=== PATIENT | female | born 1995 | race Caucasian/White ===

== ENCOUNTER 2021-10-22 16:34 | Emergency (ER) | payer MEDICAID ==
[~2021-10-22] VITALS: Ht 160 cm; Wt 57.0 kg
--- NOTE | 2021-10-22 17:16 | ED Chest Pain ---
General Chief Complaint: Chest Wall Stated Complaint: CHEST PAIN, RINGING IN EARS,DIZZY Nursing Triage Note: pt. reports anterior chest discomfort, ongoing for over 4 months. accomp w/ a mild cough, productive of mucus. pt. in no distress. here for eval. Source: patient Exam Limitations: no limitations (SHARAN RAMIREZ) History of Present Illness Date Seen by Provider: Oct 22, 2021 Time Seen by Provider: 17:15 Initial Comments This is a 25-year-old female that presents to the emergency room for multiple complaints. She states that she has had intermittent chest pain over the last 4 months and that it is mostly substernal. Nothing specifically seems to make it come or go but she states that she currently does not have any pain. However, she does state that over the last 2 to 3 days she has had a runny nose, cough and congestion and the reason she came to the emergency room today was for feeling short of breath. She has not traveled anywhere recently. She does have history of insulin-dependent diabetes and states that she takes her Levemir and NovoLog as prescribed. Timing/Duration: 1-2 days Severity/Quality: moderate Location: substernal Radiation: no radiation Activities at Onset: none (SHARAN RAMIREZ) Allergies and Home Medications Allergies Coded Allergies: No Known Drug Allergies (Unverified , 10/22/21) Patient Home Medication List Home Medication List Reviewed: Yes (SHARAN RAMIREZ) Review of Systems Review of Systems Constitutional: malaise EENTM: Nose Congestion Respiratory: Cough Cardiovascular: Chest Pain Gastrointestinal: No Symptoms Reported Genitourinary: No Symptoms Reported Musculoskeletal: no symptoms reported Skin: no symptoms reported (SHARAN RAMIREZ) Past Xxpijjb-Jthgwp-Jhyrxd Hx Past Medical History Last Menstrual Period: September 18, 2021 (SHARAN RAMIREZ) Physical Exam Vital Signs Vital Signs - First Documented 10/22/21 16:50 Temp 36.9 Pulse 100 Resp 20 B/P (MAP) 105/80 (88) Pulse Ox 98 O2 Delivery Room Air (ELIZABETH MARIE MD) Vital Signs Capillary Refill : Less Than 3 Seconds (SHARAN RAMIREZ) Height, Weight, BMI Height: '" Weight: lbs. oz. kg; 22.00 BMI Method: General Appearance: No Apparent Distress, WD/WN HEENT: PERRL/EOMI, TMs Normal, Pharynx Normal Neck: Full Range of Motion, Normal Inspection Respiratory: Chest Non Tender, Lungs Clear, Normal Breath Sounds Cardiovascular: No Edema, No Murmur, Tachycardia Gastrointestinal: Non Tender, Soft Extremity: Normal Capillary Refill, Normal Inspection Skin: Normal Color Lymphatic: No Adenopathy (SHARAN RAMIREZ) Progress/Results/Core Measures Results/Orders Lab Results Laboratory Tests Test 10/22/21 17:17 Range/Units White Blood Count 8.4 4.3-11.0 10^3/uL Red Blood Count 4.04 3.80-5.11 10^6/uL Hemoglobin 12.3 11.5-16.0 g/dL Hematocrit 36 35-52 % Mean Corpuscular Volume 89 80-99 fL Mean Corpuscular Hemoglobin 30 25-34 pg Mean Corpuscular Hemoglobin Concent 34 32-36 g/dL Red Cell Distribution Width 11.9 10.0-14.5 % Platelet Count 220 130-400 10^3/uL Mean Platelet Volume 9.5 9.0-12.2 fL Immature Granulocyte % (Auto) 0 % Neutrophils (%) (Auto) 72 42-75 % Lymphocytes (%) (Auto) 18 12-44 % Monocytes (%) (Auto) 8 0-12 % Eosinophils (%) (Auto) 2 0-10 % Basophils (%) (Auto) 0 0-10 % Neutrophils # (Auto) 6.0 1.8-7.8 10^3/uL Lymphocytes # (Auto) 1.5 1.0-4.0 10^3/uL Monocytes # (Auto) 0.7 0.0-1.0 10^3/uL Eosinophils # (Auto) 0.2 0.0-0.3 10^3/uL Basophils # (Auto) 0.0 0.0-0.1 10^3/uL Immature Granulocyte # (Auto) 0.0 0.0-0.1 10^3/uL D-Dimer 0.22 0.00-0.49 UG/ML Sodium Level 139 135-145 MMOL/L Potassium Level 3.6 3.6-5.0 MMOL/L Chloride Level 106 98-107 MMOL/L Carbon Dioxide Level 25 21-32 MMOL/L Anion Gap 8 5-14 MMOL/L Blood Urea Nitrogen 11 7-18 MG/DL Creatinine 0.69 0.60-1.30 MG/DL Estimat Glomerular Filtration Rate 125 BUN/Creatinine Ratio 16 Glucose Level 214 H 70-105 MG/DL Calcium Level 9.0 8.5-10.1 MG/DL Corrected Calcium 9.1 8.5-10.1 MG/DL Total Bilirubin 0.4 0.1-1.0 MG/DL Aspartate Amino Transf (AST/SGOT) 16 5-34 U/L Alanine Aminotransferase (ALT/SGPT) 16 0-55 U/L Alkaline Phosphatase 74 40-136 U/L Total Protein 6.5 6.4-8.2 GM/DL Albumin 3.9 3.2-4.5 GM/DL Serum Test, Qualitative NEGATIVE NEGATIVE Influenza Type A (RT-PCR) Not Detected Not Detecte Influenza Type B (RT-PCR) Not Detected Not Detecte SARS-CoV-2 RNA (RT-PCR) Not Detected Not Detecte (ELIZABETH MARIE MD) My Orders Orders - ELIZABETH MARIE MD Ekg Tracing (10/22/21 16:39) Monitor-Rhythm Ecg Trace Only (10/22/21 16:39) (ELIZABETH MARIE MD) Vital Signs/I&O 10/22/21 10/22/21 16:50 18:43 Temp 36.9 36.7 Pulse 100 86 Resp 20 16 B/P (MAP) 105/80 (88) 118/73 Pulse Ox 98 99 O2 Delivery Room Air Room Air 10/23/21 00:00 Intake Total 1000 ml Balance 1000 ml (ELIZABETH MARIE MD) Blood Pressure Mean: 88 Departure Communication (PCP) Patient is afebrile, nontoxic and in no distress. Lab work is reassuring. She is not actively having chest pain and her symptoms do not seem to be consistent with cardiac origin. Her D-dimer was negative and chest x-ray does not show any acute cardiopulmonary abnormalities. At this time I recommended that she follow-up closely with her primary care doctor for her upper respiratory infection as well as her intermittent chest pain. Patient is in agreement to the care plan. I do not feel that admission or further imaging/labs are indicated at this time. (ASHLEY,SHARAN H PA) Impression Primary Impression: Cough Additional Impression: Atypical chest pain Disposition: HOME, SELF-CARE Condition: Stable Departure-Patient Inst. Referrals: FRANCISCO ESPINAL MD (PCP) Primary Care Physician Patient Instructions: Chest Pain, Adult ED Add. Discharge Instructions: Please follow-up closely with your primary care doctor. Return to the emergency room with any severe changes or worsening of symptoms All discharge instructions reviewed with patient and/or family. Voiced understanding. ATTENDING PHYSICIAN NOTE: I was physically present as attending physician in the emergency department during the care of this patient, but I was not directly involved in the decision making or delivery of care for this patient. (ELIZABETH MARIE MD) SHARAN RAMIREZ Oct 22, 2021 17:16 ELIZABETH MARIE MD Oct 23, 2021 21:39
[2021-10-22] MEDS ORDERED: NS IV 1000 ML 1,000 ML IV STA (17:19)
[2021-10-22 17:28] LABS: BASOPHILS % (AUTO) 0 % (0-10); EOSINOPHILS # (AUTO) 0.2 10^3/uL (0.0-0.3); EOSINOPHILS % (AUTO) 2 % (0-10); HEMATOCRIT 36 % (35-52); HEMOGLOBIN 12.3 g/dL (11.5-16.0); LYMPHOCYTES # (AUTO) 1.5 10^3/uL (1.0-4.0); LYMPHOCYTES % (AUTO) 18 % (12-44); MEAN CORPUSCULAR HEMOGLOBIN 30 pg (25-34); MEAN CORPUSCULAR HGB CONC 34 g/dL (32-36); MEAN CORPUSCULAR VOLUME 89 fL (80-99); MEAN PLATELET VOLUME 9.5 fL (9.0-12.2); MONOCYTES # (AUTO) 0.7 10^3/uL (0.0-1.0); MONOCYTES % (AUTO) 8 % (0-12); NEUTROPHILS % (AUTO) 72 % (42-75); PLATELET COUNT 220 10^3/uL (130-400); WHITE BLOOD COUNT 8.4 10^3/uL (4.3-11.0)
[2021-10-22 17:45] LABS: ALBUMIN 3.9 GM/DL (3.2-4.5); POTASSIUM 3.6 MMOL/L (3.6-5.0)
[2021-10-22 17:48] LABS: TOTAL PROTEIN 6.5 GM/DL (6.4-8.2)
[2021-10-22 17:49] LABS: BILIRUBIN,TOTAL 0.4 MG/DL (0.1-1.0)
[2021-10-22 17:51] LABS: CREATININE SERUM 0.69 MG/DL (0.60-1.30)
--- NOTE | 2021-10-22 18:34 | Diagnostic Imaging Report ---
EXAM: Chest (PA and lateral). INDICATION: Cough. COMPARISON: None. FINDINGS: Normal heart size and pulmonary vascularity. No dense consolidation, pleural effusion or pneumothorax. No acute osseous finding. IMPRESSION: No acute cardiopulmonary finding. Dictated by: Dictated on workstation # [id number]
[2021-10-22 18:43] VITALS: BP 118/73
== END 2021-10-22 18:47 | disposition home or self-care (01) ==
LOC: EDUNIT# 16:34 → ER 16:37
DX: R07.89 Other chest pain (principal); R05.1 Acute cough; E11.9 Type 2 diabetes mellitus without complications; Z79.4 Long term (current) use of insulin; Z20.822 Contact with and (suspected) exposure to COVID-19
CPT/HCPCS: 36415; 71046; 80053; 84703; 85025; 85379; 87636; 93005

== ENCOUNTER 2021-11-13 11:31 | Emergency (ER) | payer MEDICAID ==
[~2021-11-13] VITALS: Ht 160 cm; Wt 56.7 kg
[2021-11-13] MEDS ORDERED: LACTATED RINGERS 1,000 ML IV ONE (11:45)
[2021-11-13 11:54] LABS: BILIRUBIN,URINE NEGATIVE (NEGATIVE); CLARITY,URINE CLEAR; COLOR,URINE YELLOW; GLUCOSE, URINE (UA) 3+ (NEGATIVE); KETONES,URINE 2+ (NEGATIVE); LEUKOCYTE ESTERASE ,URINE 1+ (NEGATIVE); NITRITE,URINE POSITIVE (NEGATIVE); PROTEIN,URINE TRACE (NEGATIVE)
[2021-11-13 12:03] LABS: BASOPHILS % (AUTO) 1 % (0-10); EOSINOPHILS # (AUTO) 0.2 10^3/uL (0.0-0.3); EOSINOPHILS % (AUTO) 3 % (0-10); HEMATOCRIT 39 % (35-52); LYMPHOCYTES # (AUTO) 1.1 10^3/uL (1.0-4.0); LYMPHOCYTES % (AUTO) 18 % (12-44); MEAN CORPUSCULAR HEMOGLOBIN 30 pg (25-34); MEAN CORPUSCULAR HGB CONC 33 g/dL (32-36); MEAN CORPUSCULAR VOLUME 91 fL (80-99); MEAN PLATELET VOLUME 9.5 fL (9.0-12.2); MONOCYTES # (AUTO) 0.3 10^3/uL (0.0-1.0); MONOCYTES % (AUTO) 5 % (0-12); NEUTROPHILS # (AUTO) 4.6 10^3/uL (1.8-7.8); NEUTROPHILS % (AUTO) 74 % (42-75); PLATELET COUNT 246 10^3/uL (130-400); WHITE BLOOD COUNT 6.3 10^3/uL (4.3-11.0)
[2021-11-13 12:14] LABS: ALBUMIN 4.2 GM/DL (3.2-4.5); POTASSIUM 3.9 MMOL/L (3.6-5.0)
[2021-11-13 12:17] LABS: TOTAL PROTEIN 6.9 GM/DL (6.4-8.2)
[2021-11-13 12:17] LABS: BACTERIA,URINE LARGE /HPF; WBC,URINE >100 /HPF
[2021-11-13 12:19] LABS: BILIRUBIN,TOTAL 0.5 MG/DL (0.1-1.0)
[2021-11-13 12:21] LABS: CREATININE SERUM 0.79 MG/DL (0.60-1.30)
[2021-11-13] MEDS ORDERED: PHENAZOPYRIDINE 100 MG (PYRIDIUM) TABLET PO STA (12:49)
--- NOTE | 2021-11-13 12:56 | ED GU-Female ---
General Chief Complaint: - Reproductive Stated Complaint: N/V,ABD PAIN,DX 11/13 W UTI Nursing Triage Note: PT AMBULATE TO ROOM 05 WITH C/O N/V, BURNING WITH URINATION, AND ABD PAIN. PT REPORTS BEIGN DX WITH UTI YESTERDAY AND PRESCRIBED ABX. PT STATES SHE WAS WAITING ON TEXT FROM THE [facility] LETTING HER KNOW THAT HER ABX WERE READY. PT STATES THE DISCOMFORT GOT WORSE SO SHE CAME TO ED. (RUCHI REDDY) History of Present Illness Date Seen by Provider: Nov 13, 2021 Time Seen by Provider: 11:45 Initial Comments 25 year old Type 1 DM, reports UTI and alopecia diagnosed yesterday at [facility]. Told her Rx would be sent to [facility], when she went to pharmacy rx was not ready and to await for a text to come pick it up. This morning, her phone battery was , so she wasn't sure if a text was sent saying the Rx was ready. She reports no longer having her continuous glucose monitor. She is taking insulin, as prescribed. She is switching Endocrinologists at this time. She has not taken any Tylenol or Ibuprofen for her symptoms. She denies N/V/D and no recent UTIs. Called [facility], no Rxs were sent to them at the [facility] or [place]. Spoke to nurse at [facility], chart indicates that she was going to treat alopecia with an anti-fungal and UTI was diagnosed but no Rx was on the chart. Timing/Duration: yesterday Severity/Quality: moderate Location: suprapubic Radiation: none Prior Genitourinary Problems: none Associated Symptoms: abdominal pain (suprapubic); No loss of bladder control, No lower back pain (RUCHI REDDY) Allergies and Home Medications Allergies Coded Allergies: amoxicillin (Verified Allergy, Unknown, 11/13/21) sulfamethoxazole (Verified Allergy, Unknown, 11/13/21) trimethoprim (Verified Allergy, Unknown, 11/13/21) Patient Home Medication List Home Medication List Reviewed: Yes (RUCHI REDDY) Nitrofurantoin Monohyd/M-Cryst (Macrobid 100 mg Capsule) 100 Mg Capsule, 100 MG PO BID Prescribed by: RUCHI REDDY on 11/13/21 1319 Phenazopyridine HCl (Pyridium) 100 Mg Tablet, 100 MG PO TID PRN for SPASMS Prescribed by: RUCHI REDDY on 11/13/21 1320 Review of Systems Review of Systems Constitutional: no symptoms reported, see HPI Genitourinary: see HPI, burning, frequency; denies hematuria : Yes (RUCHI REDDY) All Other Systemes Reviewed Negative Unless Noted: Yes (RUCHI REDDY) Past Oqbnoud-Ugfran-Jjcjmj Hx Patient Social History Tobacco Use?: No Smoking Status: Never a Smoker Smokeless Tobacco Frequency: Never a User Use of E-Cig and/or Vaping dev: No Use of E-Cig and/or Vaping Edwin: Never a User Substance use?: No Alcohol Use?: Yes Alcohol Frequency: Once in a while Pt feels they are or have been: No (RUCHI REDDY) Family Medical History Reviewed Nursing Family Hx (RUCHI REDDY) Physical Exam Vital Signs Vital Signs - First Documented 11/13/21 11/13/21 11:39 13:59 Temp 35.5 Pulse 93 Resp 18 B/P (MAP) 92/75 (81) Pulse Ox 100 O2 Delivery Room Air (ELIZABETH MARIE MD) Vital Signs Capillary Refill : Less Than 3 Seconds (RUCHI REDDY) Height, Weight, BMI Height: '" Weight: lbs. oz. kg; 22.00 BMI Method: General Appearance: WD/WN, no apparent distress HEENT: PERRL/EOMI, normal ENT inspection Neck: non-tender, full range of motion, supple, normal inspection Cardiovascular: normal peripheral pulses, regular rate, rhythm Respiratory: chest non-tender, lungs clear, normal breath sounds Gastrointestinal: normal bowel sounds, soft, tenderness (mild suprapubic) Extremities: normal range of motion, non-tender, normal inspection, no pedal edema Neurologic/Psychiatric: no motor/sensory deficits, alert, normal mood/affect, oriented x 3 (RUCHI REDDY) Progress/Results/Core Measures Suspected Sepsis SIRS Temperature: Pulse: 93 Respiratory Rate: 18 Laboratory Tests 11/13/21 11:55: White Blood Count 6.3 Blood Pressure 92 /75 Mean: 81 Laboratory Tests 11/13/21 11:55: Creatinine 0.79, Platelet Count 246, Total Bilirubin 0.5 (RUCHI REDDY) Results/Orders Lab Results Laboratory Tests Test 11/13/21 11:41 11/13/21 11:55 11/13/21 12:06 Range/Units Urine Color YELLOW Urine Clarity CLEAR Urine pH 6.0 5-9 Urine Specific [place] 1.020 1.016-1.022 Urine Protein TRACE H NEGATIVE Urine Glucose (UA) 3+ H NEGATIVE Urine Ketones 2+ H NEGATIVE Urine Nitrite POSITIVE H NEGATIVE Urine Bilirubin NEGATIVE NEGATIVE Urine Urobilinogen 1.0 < = 1.0 MG/DL Urine Leukocyte Esterase 1+ H NEGATIVE Urine RBC (Auto) TRACE-I H NEGATIVE Urine RBC 2-5 H /HPF Urine WBC >100 H /HPF Urine Squamous Epithelial Cells 5-10 /HPF Urine Crystals NONE /LPF Urine Bacteria LARGE H /HPF Urine Casts NONE /LPF Urine Mucus NEGATIVE /LPF Urine Culture Indicated YES White Blood Count 6.3 4.3-11.0 10^3/uL Red Blood Count 4.31 3.80-5.11 10^6/uL Hemoglobin 13.0 11.5-16.0 g/dL Hematocrit 39 35-52 % Mean Corpuscular Volume 91 80-99 fL Mean Corpuscular Hemoglobin 30 25-34 pg Mean Corpuscular Hemoglobin Concent 33 32-36 g/dL Red Cell Distribution Width 12.0 10.0-14.5 % Platelet Count 246 130-400 10^3/uL Mean Platelet Volume 9.5 9.0-12.2 fL Immature Granulocyte % (Auto) 0 % Neutrophils (%) (Auto) 74 42-75 % Lymphocytes (%) (Auto) 18 12-44 % Monocytes (%) (Auto) 5 0-12 % Eosinophils (%) (Auto) 3 0-10 % Basophils (%) (Auto) 1 0-10 % Neutrophils # (Auto) 4.6 1.8-7.8 10^3/uL Lymphocytes # (Auto) 1.1 1.0-4.0 10^3/uL Monocytes # (Auto) 0.3 0.0-1.0 10^3/uL Eosinophils # (Auto) 0.2 0.0-0.3 10^3/uL Basophils # (Auto) 0.0 0.0-0.1 10^3/uL Immature Granulocyte # (Auto) 0.0 0.0-0.1 10^3/uL Sodium Level 140 135-145 MMOL/L Potassium Level 3.9 3.6-5.0 MMOL/L Chloride Level 104 98-107 MMOL/L Carbon Dioxide Level 23 21-32 MMOL/L Anion Gap 13 5-14 MMOL/L Blood Urea Nitrogen 18 7-18 MG/DL Creatinine 0.79 0.60-1.30 MG/DL Estimat Glomerular Filtration Rate 108 BUN/Creatinine Ratio 23 Glucose Level 262 H 70-105 MG/DL Calcium Level 9.0 8.5-10.1 MG/DL Corrected Calcium 8.8 8.5-10.1 MG/DL Total Bilirubin 0.5 0.1-1.0 MG/DL Aspartate Amino Transf (AST/SGOT) 14 5-34 U/L Alanine Aminotransferase (ALT/SGPT) 13 0-55 U/L Alkaline Phosphatase 77 40-136 U/L C-Reactive Protein High Sensitivity 0.46 0.00-0.50 MG/DL Total Protein 6.9 6.4-8.2 GM/DL Albumin 4.2 3.2-4.5 GM/DL Serum Test, Qualitative NEGATIVE NEGATIVE Glucometer 241 H 70-110 MG/DL (ELIZABETH MARIE MD) My Orders Orders - ELIZABETH MARIE MD Cbc With Automated Diff (11/13/21 11:39) Comprehensive Metabolic Panel (11/13/21 11:39) Hs C Reactive Protein (11/13/21 11:39) Hcg,Qualitative Serum (11/13/21 11:39) Ed Iv/Invasive Line Start (11/13/21 11:39) Lactated Ringers (Lr 1000 Ml Iv Solution (11/13/21 11:45) (ELIZABETH MARIE MD) Medications Given in ED Current Medications Medications Dose Ordered Sig/Linden Route Start Time Stop Time Status Last Admin Dose Admin Ceftriaxone Sodium/Dextrose 50 ml @ 100 mls/hr ONCE ONCE IV 11/13/21 13:00 11/13/21 13:29 DC 11/13/21 12:54 100 MLS/HR Lactated Ringer's 1,000 ml @ 0 mls/hr Q0M ONCE IV 11/13/21 11:45 11/13/21 11:46 DC 11/13/21 11:59 999 MLS/HR (ELIZABETH MARIE MD) Vital Signs/I&O 11/13/21 11/13/21 11:39 13:59 Temp 35.5 Pulse 93 87 Resp 18 18 B/P (MAP) 92/75 (81) 109/67 Pulse Ox 100 O2 Delivery Room Air Room Air (ELIZABETH MARIE MD) Vital Signs/I&O Capillary Refill : Less Than 3 Seconds (RUCHI REDDY) Blood Pressure Mean: 81 Point of Care Testing Finger Stick Blood Glucose: 241 Blood Glucose Action Taken: rn notified (RUCHI REDDY) Progress Note : Time: 11:45 Progress Note Patient seen and evaluated, will obtain labs, LR 1 L per IV, and continue to monitor. 1240 patient has significant UTI and positive ketones, IV fluids have been given. She is drinking water with no nausea or vomiting. Will give Rocephin 1 g IV and Pyridium 100 mg PO. 1310 patient reports improvement in symptoms. [facility] calling in Rx for anitfungal shampoo to [facility]. Antibiotics being prescribed by this provider. Culture not returned at [facility], but they will follow to adjust medications as needed. Discharge instructions and return precautions reviewed with the patient. All questions answered. (RUCHI REDDY) Departure Impression Primary Impression: Urinary tract infection Qualified Codes: N30.01 - Acute cystitis with hematuria Additional Impressions: Hyperglycemia due to type 1 diabetes mellitus Alopecia Disposition: 01 HOME, SELF-CARE Condition: Improved Departure-Patient Inst. Decision time for Depature: 13:05 (RUCHI REDDY) Referrals: [facility] LIZETH,LOCAL PHYSICIAN (PCP) Primary Care Physician Patient Instructions: Urinary Tract Infection, Adult (DC) Add. Discharge Instructions: Obtain your prescriptions from the pharmacy today. Take antibiotics as prescribed. Empty bladder every 2 hours while awake. Continue to monitor your blood sugar and adjust insulin as necessary. Follow-up at [facility] for the alopecia, they should be sending an antifungal prescription into the pharmacy for you. Increase water intake, 1 bottle every hour while awake. You may alternate between Tylenol 650 mg and ibuprofen 600 mg every 4 hours for pain or discomfort. Return to the emergency department for new, urgent healthcare needs. All discharge instructions reviewed with patient and/or family. Voiced understanding. Scripts Phenazopyridine HCl (Pyridium) 100 Mg Tablet 100 MG PO TID PRN for SPASMS, #6 TAB 0 Refills Prov: RUCHI REDDY VINNIE 11/13/21 Nitrofurantoin Monohyd/M-Cryst (Macrobid 100 mg Capsule) 100 Mg Capsule 100 MG PO BID for 7 Days, #14 CAP 0 Refills Prov: RUCHI REDDY VINNIE 11/13/21 Work/School Note: Work Release Form Date Seen in the Emergency Department: Nov 13, 2021 Return to Work: Nov 14, 2021 Restrictions: No Restrictions ATTENDING PHYSICIAN NOTE: I was physically present as attending physician in the emergency department during the care of this patient. I placed initial orders after reviewing chief complaint and triage notes. I was not otherwise directly involved in the decision making or delivery of care for this patient. (ELIZABETH MARIE MD) Copy Copies To 1: VINICIO MERRITT DO RUCHI REDDY VINNIE Nov 13, 2021 12:56 ELIZABETH MARIE MD Nov 13, 2021 17:29
[2021-11-13] MEDS ORDERED: cefTRIAXone 1 GM PRE-MIX 50 ML IV ONE (13:00)
[2021-11-13] MEDS ORDERED: NITR-65 PO (13:19)
[2021-11-13] MEDS ORDERED: PHEN-639 PO (13:20)
[2021-11-13 13:59] VITALS: BP 109/67
== END 2021-11-13 13:59 | disposition home or self-care (01) ==
LOC: EDUNIT# 11:31 → ER 11:33
DX: E10.65 Type 1 diabetes mellitus with hyperglycemia (principal); N39.0 Urinary tract infection, site not specified; L63.9 Alopecia areata, unspecified; Z28.310 Unvaccinated for COVID-19; Z32.02 Encounter for pregnancy test, result negative
CPT/HCPCS: 36415; 80053; 81000; 82947; 84703; 85025; 86141; 87077; 87088; 87186

== ENCOUNTER 2021-12-14 20:59 | Inpatient (IN) | payer MEDICAID ==
[~2021-12-14] VITALS: Ht 160 cm; Wt 57.3 kg
[~2021-12-14 20:59] MED LIST: NITR-65 PO; PHEN-639 PO
[2021-12-14] MEDS ORDERED: NS IV 1000 ML 1,000 ML IV SCH (22:00)
[2021-12-14 22:20] LABS: BASOPHILS % (AUTO) 1 % (0-10); EOSINOPHILS # (AUTO) 0.3 10^3/uL (0.0-0.3); EOSINOPHILS % (AUTO) 6 % (0-10); HEMATOCRIT 40 % (35-52); HEMOGLOBIN 13.2 g/dL (11.5-16.0); LYMPHOCYTES # (AUTO) 1.4 10^3/uL (1.0-4.0); LYMPHOCYTES % (AUTO) 27 % (12-44); MEAN CORPUSCULAR HEMOGLOBIN 30 pg (25-34); MEAN CORPUSCULAR HGB CONC 33 g/dL (32-36); MEAN CORPUSCULAR VOLUME 91 fL (80-99); MEAN PLATELET VOLUME 9.8 fL (9.0-12.2); MONOCYTES # (AUTO) 0.3 10^3/uL (0.0-1.0); MONOCYTES % (AUTO) 5 % (0-12); NEUTROPHILS # (AUTO) 3.1 10^3/uL (1.8-7.8); NEUTROPHILS % (AUTO) 61 % (42-75); PLATELET COUNT 226 10^3/uL (130-400); WHITE BLOOD COUNT 5.1 10^3/uL (4.3-11.0)
[2021-12-14 22:34] LABS: ALBUMIN 4.5 GM/DL (3.2-4.5); POTASSIUM 4.6 MMOL/L (3.6-5.0)
[2021-12-14 22:36] LABS: CALCIUM 9.3 MG/DL (8.5-10.1)
[2021-12-14 22:37] LABS: TOTAL PROTEIN 7.4 GM/DL (6.4-8.2)
[2021-12-14 22:39] LABS: BILIRUBIN,TOTAL 0.4 MG/DL (0.1-1.0)
[2021-12-14 22:40] LABS: CREATININE SERUM 1.03 MG/DL (0.60-1.30)
[2021-12-14 22:40] LABS: BILIRUBIN,URINE NEGATIVE (NEGATIVE); CLARITY,URINE CLEAR; COLOR,URINE YELLOW; GLUCOSE, URINE (UA) 3+ (NEGATIVE); KETONES,URINE 2+ (NEGATIVE); LEUKOCYTE ESTERASE ,URINE NEGATIVE (NEGATIVE); NITRITE,URINE NEGATIVE (NEGATIVE); PH,URINE 5.5 (5-9); PROTEIN,URINE NEGATIVE (NEGATIVE)
[2021-12-14 22:43] LABS: MAGNESIUM 1.7 MG/DL (1.6-2.4)
[2021-12-14 22:49] LABS: BACTERIA,URINE LARGE /HPF; WBC,URINE 50-100 /HPF
[2021-12-14 22:54] LABS: AMPHETAMINE SCREEN, URINE NEGATIVE (NEGATIVE); BARBITURATE SCREEN URINE NEGATIVE (NEGATIVE); BENZODIAZEPINES SCREEN URINE NEGATIVE (NEGATIVE); CANNABINOID SCREEN, URINE NEGATIVE (NEGATIVE); COCAINE SCREEN URINE NEGATIVE (NEGATIVE); METHADONE STAT NEGATIVE (NEGATIVE); OPIATE SCREEN URINE NEGATIVE (NEGATIVE); OXYCODONE STAT NEGATIVE (NEGATIVE); PROPOXYPHENE STAT NEGATIVE (NEGATIVE); TRICYCLIC ANTIDEPRESSANTS SCRE NEGATIVE (NEGATIVE)
[2021-12-14 23:07] LABS: TSH (THYROID ANALYZER) 4.72 UIU/ML (0.35-4.94)
[2021-12-15] MEDS ORDERED: inSUlin (REGULAR) HUMAN 1 UNIT/0.01 ML (CHARGE PER UNIT) IV ONE (00:15)
[2021-12-15] MEDS ORDERED: NS IV 1000 ML 1,000 ML IV SCH ×2 (00:30→03:45)
[2021-12-15] MEDS ORDERED: cefTRIAXone 1 GM PRE-MIX 50 ML IV ONE (01:00)
[2021-12-15 03:31] VITALS: BP 113/74
[2021-12-15] MEDS ORDERED: 1/2 NS IV SOLUTION 1,000 ML IV ONE (03:34)
[2021-12-15] MEDS ORDERED: POTASSIUM CL 10MEQ/50ML IVPB 50 ML IV ONE (03:34)
[2021-12-15] MEDS ORDERED: ONDANSETRON 4 MG/2 ML (SDV) Z0FRAN IV PRN (03:45)
[2021-12-15] MEDS ORDERED: POTASSIUM CL 10MEQ/50ML IVPB 50 ML IV SCH ×2 (03:45→06:00)
[2021-12-15] MEDS ORDERED: CATHETER FLUSH 10 ML SYR IVP PRN (03:45)
[2021-12-15] MEDS ORDERED: D5 1/2 NS 1000 ML IV SOLUTION 1,000 ML IV SCH (03:45)
[2021-12-15] MEDS ORDERED: ACETAMINOPHEN 500 MG TAB (TYLENOL) PO PRN (03:45)
[2021-12-15] MEDS ORDERED: 1/2 NS IV SOLUTION 1,000 ML IV SCH (03:45)
--- NOTE | 2021-12-15 04:03 | Tele-ICU Progress Note ---
Progress Note 26 y/o with Hx of DM1 , ran out of insulin. Labs reviewed. VSS 1.DKA 2. ELECTROLYTE IMBALANCE. DKA protocol , empiric abx ? No ED note yet. Interventions Intermediate-Electrolyte abnormality - evaluation and management Minor-Other: DKA Focused Exam Lactate Level 12/14/21 22:25: Lactic Acid Level 0.77 Height, Weight, BMI Height: '" Weight: lbs. oz. kg; 22.00 BMI Method: JOSE GARCIA MD Dec 15, 2021 04:03
[2021-12-15 05:19] LABS: BASOPHILS % (AUTO) 0 % (0-10); EOSINOPHILS # (AUTO) 0.2 10^3/uL (0.0-0.3); EOSINOPHILS % (AUTO) 3 % (0-10); HEMATOCRIT 39 % (35-52); HEMOGLOBIN 13.1 g/dL (11.5-16.0); LYMPHOCYTES # (AUTO) 1.7 10^3/uL (1.0-4.0); LYMPHOCYTES % (AUTO) 25 % (12-44); MEAN CORPUSCULAR HEMOGLOBIN 30 pg (25-34); MEAN CORPUSCULAR HGB CONC 33 g/dL (32-36); MEAN CORPUSCULAR VOLUME 91 fL (80-99); MEAN PLATELET VOLUME 9.9 fL (9.0-12.2); MONOCYTES # (AUTO) 0.4 10^3/uL (0.0-1.0); MONOCYTES % (AUTO) 5 % (0-12); NEUTROPHILS # (AUTO) 4.4 10^3/uL (1.8-7.8); NEUTROPHILS % (AUTO) 66 % (42-75); PLATELET COUNT 214 10^3/uL (130-400); WHITE BLOOD COUNT 6.7 10^3/uL (4.3-11.0)
[2021-12-15 05:29] LABS: ALBUMIN 4.2 GM/DL (3.2-4.5); POTASSIUM 4.1 MMOL/L (3.6-5.0)
[2021-12-15] MEDS ORDERED: NS IV 500 ML 500 ML IV PRN (05:30)
[2021-12-15 05:31] LABS: CALCIUM 8.9 MG/DL (8.5-10.1)
[2021-12-15 05:32] LABS: TOTAL PROTEIN 6.9 GM/DL (6.4-8.2)
[2021-12-15 05:34] LABS: BILIRUBIN,TOTAL 0.4 MG/DL (0.1-1.0)
[2021-12-15 05:35] LABS: PHOSPHORUS 2.4 MG/DL (2.3-4.7)
[2021-12-15 05:36] LABS: CREATININE SERUM 0.94 MG/DL (0.60-1.30)
[2021-12-15 05:38] LABS: MAGNESIUM 1.6 MG/DL (1.6-2.4)
[2021-12-15] MEDS: POTASSIUM CL 10MEQ/50ML IVPB 50 ML IV SCH ×2 (05:42→07:54)
[2021-12-15] MEDS: CATHETER FLUSH 10 ML SYR IVP SCH ×2 (05:45→14:20)
[2021-12-15] MEDS ORDERED: KCL 20 MEQ TAB (K-DUR) PO SCH (06:00)
[2021-12-15] MEDS ORDERED: MAGNESIUM 1 GM/100 ML IVPB 100 ML IV SCH (06:00)
[2021-12-15] MEDS: MAGNESIUM 1 GM/100 ML IVPB 100 ML IV SCH ×2 (06:45→07:56)
[2021-12-15 07:58] LABS: POTASSIUM 3.8 MMOL/L (3.6-5.0)
[2021-12-15 08:00] LABS: CALCIUM 8.2 MG/DL (8.5-10.1)
[2021-12-15 08:04] LABS: CREATININE SERUM 0.78 MG/DL (0.60-1.30)
--- NOTE | 2021-12-15 08:09 | Tele-ICU Progress Note ---
Subjective Date Seen by a Provider: Dec 15, 2021 Time Seen by a Provider: 08:06 Subjective/Events-last exam 26 y/o with Hx of DM1 , ran out of insulin. Labs reviewed. VSS 1.DKA, now resolved, will give 10 units of Levimer 2. ELECTROLYTE IMBALANCE. DKA protocol , empiric abx ? No ED note yet. Interventions Intermediate-Electrolyte abnormality - evaluation and management Minor-Other: DKA Sepsis Event Evaluation Height, Weight, BMI Height: '" Weight: lbs. oz. kg; 22.38 BMI Method: Focused Exam Lactate Level 12/14/21 22:25: Lactic Acid Level 0.77 Exam Exam Patient acknowledged, consented, and participated in this virtual visit which was conducted using real time audio/video Vital Signs Date Time Temp Pulse Resp B/P (MAP) Pulse Ox O2 Delivery O2 Flow Rate FiO2 12/15/21 07:32 72 12/15/21 06:00 76 14 106/67 97 Room Air 12/15/21 05:05 84 8 108/74 98 Room Air 12/15/21 04:37 89 15 126/77 98 Room Air 12/15/21 04:07 78 10 119/65 99 Room Air 12/15/21 03:45 80 17 105/62 98 Room Air 12/15/21 03:31 73 14 113/74 99 Room Air 12/15/21 03:30 84 20 121/74 98 Room Air 12/15/21 03:30 99 Room Air 12/15/21 03:29 78 12/15/21 03:25 36.9 12/14/21 21:56 37.0 91 18 118/86 (97) 98 Room Air 12/14/21 21:56 Room Air I & O 12/15/21 07:00 Intake Total 2450 ml Output Total 1100 ml Balance 1350 ml Height & Weight Height: '" Weight: lbs. oz. kg; 22.38 BMI Method: General Appearance: No Apparent Distress Respiratory: Lungs Clear Cardiovascular: Regular Rate, Rhythm, No Edema Capillary Refill: Less Than 3 Seconds Gastrointestinal: normal bowel sounds, non tender, soft Neurologic/Psychiatric: Alert, Oriented x3 Results Lab Laboratory Tests 12/14/21 22:10 12/15/21 04:50 12/15/21 07:23 Assessment/Plan Assessment/Plan On DKA protocol, improved can change release manager to Levimer will change release manager to home insulin dose AG is normal, HCO3 is 15, Cr normal Critical Care: Critically Ill Patient Time spent with patient (mins): 30 JOSI HARDING MD Dec 15, 2021 08:08
--- NOTE | 2021-12-15 08:35 | Short Stay Summary-Hospitalist ---
History of Present Illness HPI/Chief Complaint Patient is a 26-year-old female past medical history of type 1 diabetes and hypothyroidism who presented to the emergency department due to elevated blood sugars. She states that she ran out of her long-acting roughly 6 weeks ago and ran out of her short acting insulin yesterday prompting her to come to the emergency department. She lives in [place] and has not established with a physician. She reports her blood sugar was over 400 and she was worried she was going to end up in DKA so came to the emergency department. She was in mild DKA on arrival and was admitted to the ICU for insulin drip. This morning she reports feeling much better and would like to try eating. Source: patient Date Seen 12/15/21 Time Seen by a Provider: 08:30 Attending Physician No,Local Physician PCP Admitting Physician: Ailyn Cowan MD Attending Physician: Stan Stover MD Referring Physician Date of Admission Dec 15, 2021 at 01:45 Home Medications & Allergies Home Medications Reviewed patient Home Medication Reconciliation performed by pharmacy medication reconciliations furniture repair technician and/or nursing. Patients Allergies have been reviewed. Allergies Allergies Coded Allergies amoxicillin (Verified Allergy, Unknown, 11/13/21) sulfamethoxazole (Verified Allergy, Unknown, 11/13/21) trimethoprim (Verified Allergy, Unknown, 11/13/21) Past Qseablz-Xbmfpu-Zinbjy Hx Patient Social History Tobacco Use?: No Smoking Status: Never a Smoker Smokeless Tobacco Frequency: Never a User Use of E-Cig and/or Vaping dev: No Use of E-Cig and/or Vaping Edwin: Never a User Substance use?: No Alcohol Use?: No Pt feels they are or have been: No Immunizations Up To Date Tetanus Booster (TDap): Less Than 5 Years Current Status status: No Advance Directives: No Communicates: Verbally Primary Language: Albanian Preferred Spoken Language: Albanian Is interpretation needed?: No Implanted or Applied Medical D: Contraceptive device Past Medical History Diabetes, Insulin dep, Hypothyroidsim Family Medical History Reviewed Nursing Family Hx No Pertinent Family Hx Review of Systems Constitutional: No chills, No fever EENTM: no symptoms reported Respiratory: no symptoms reported Gastrointestinal: No loss of appetite; nausea Genitourinary: No dysuria; frequency Musculoskeletal: no symptoms reported Skin: no symptoms reported Psychiatric/Neurological: No Symptoms Reported Physical Exam Physical Exam Vital Signs Vital Signs - First Documented 12/14/21 21:56 Temp 37.0 Pulse 91 Resp 18 B/P (MAP) 118/86 (97) Pulse Ox 98 O2 Delivery Room Air Capillary Refill : Less Than 3 Seconds Height, Weight, BMI Height: '" Weight: lbs. oz. kg; 22.38 BMI Method: General Appearance: No Apparent Distress, Thin HEENT: PERRL/EOMI, Moist Mucous Membranes; No Scleral Icterus (L), No Scleral Icterus (R) Neck: Normal Inspection, Supple Respiratory: Lungs Clear, No Accessory Muscle Use, No Respiratory Distress Cardiovascular: Regular Rate, Rhythm, No JVD, No Murmur Gastrointestinal: Normal Bowel Sounds, Non Tender, Soft Extremity: Normal Capillary Refill, No Calf Tenderness, No Pedal Edema Neurologic/Psychiatric: Alert, Oriented x3, Normal Mood/Affect Skin: Normal Color, Warm/Dry Results Results/Procedures Labs Laboratory Tests 12/14/21 22:10 12/15/21 04:50 12/15/21 07:23 12/15/21 09:09 Patient resulted labs reviewed. Short Stay Diagnosis Discharge Diagnosis-Short Stay Admission Diagnosis DKA Final Discharge Diagnosis DKA Conclusion Plan DKA mild, on insulin gtt Most recent labs showed closed gap and bicarb of 15 Will transition to bolus insulin Check BMP at 1500 Plan to DC if labs remain stable Will refill insulin for her and refer to PCP for further scripts UTI On rocephin Will send Keflex to complete course Dvt ppx: ambulation Diagnosis/Problems Diagnosis/Problems (1) DKA, type 1 Status: Acute Qualifiers: Qualified Codes: E10.10 - Type 1 diabetes mellitus with ketoacidosis without coma (2) Hyperglycemia due to type 1 diabetes mellitus Status: Acute (3) Urinary tract infection Status: Acute Qualifiers: Qualified Codes: N30.00 - Acute cystitis without hematuria STAN STOVER MD Dec 15, 2021 08:34
[2021-12-15 09:34] LABS: POTASSIUM 3.7 MMOL/L (3.6-5.0)
[2021-12-15 09:35] LABS: CALCIUM 8.2 MG/DL (8.5-10.1)
[2021-12-15 09:39] LABS: CREATININE SERUM 0.75 MG/DL (0.60-1.30)
[2021-12-15] MEDS ORDERED: inSUlin ASPART (NovoLOG) 1 UNIT/0.01 ML (CHARGE PER UNIT) SC SCH ×2 (11:00→14:30)
[2021-12-15] MEDS ORDERED: INSU100I55 SC ×2 (14:40→15:38)
[2021-12-15] MEDS ORDERED: LEVO50TA6 PO (14:40)
[2021-12-15] MEDS ORDERED: INSU100I29 SQ (15:38)
[2021-12-15] MEDS ORDERED: CEPH500T PO (15:38)
--- NOTE | 2021-12-15 15:39 | Discharge Inst-Simple/Standard ---
Discharge Inst-Standard Patient Instructions/Follow Up Plan of Care/Instructions/FU: Chest pain, shortness of breath, fever, weakness, if you feel you are getting worse. Activity as Tolerated: Yes Discharge Diet: ADA Diet Return to The Hospital For: Please continue to take your medications as written. Please follow up with your primary care doctor to follow up this hospital stay. STAN GONZALEZ MD Dec 15, 2021 15:39
[2021-12-15 15:49] LABS: CALCIUM 8.8 MG/DL (8.5-10.1); CREATININE SERUM 0.79 MG/DL (0.60-1.30); POTASSIUM 4.2 MMOL/L (3.6-5.0)
[2021-12-15] MEDS ORDERED: cefTRIAXone 1 GM/50 ML (PRE-MIX) IV SCH (22:00)
== END 2021-12-15 17:55 | disposition home or self-care (01) | DRG 638 ==
LOC: EDUNIT# 20:59 → ER 21:01 → ICU 12-15 01:45
PROVIDERS: ADMIT Internal Medicine; ATTEND Family Medicine
DX: E10.10 Type 1 diabetes mellitus with ketoacidosis without coma (principal); N39.0 Urinary tract infection, site not specified; E03.9 Hypothyroidism, unspecified; Z20.822 Contact with and (suspected) exposure to COVID-19
CPT/HCPCS: 36415; 36600; 80048; 80053; 80306; 81000; 82010; 82150; 82805; 82947; 83036; 83605; 83690; 83735; 84100; 84443; 84703; 85025; 87081; 87088; 87636; 93041; G0378

== ENCOUNTER 2022-04-13 07:14 | Emergency (ER) | payer MEDICAID ==
[~2022-04-13] VITALS: Ht 160 cm; Wt 59.0 kg
[~2022-04-13 07:14] MED LIST changes: +CEPH500T PO; +INSU100I29 SQ; +INSU100I55 SC; +LEVO50TA6 PO
[2022-04-13] MEDS ORDERED: NS IV 1000 ML 1,000 ML IV STA (07:36)
--- NOTE | 2022-04-13 07:39 | ED Back Pain ---
General Chief Complaint: Back Problems Stated Complaint: VOMITING | LOWER BACK PAIN Nursing Triage Note: PT TO RM 5 PER W/C PT CO OF L LOWER BACK PAIN 12/17 UPON MOVEMENT STARTED THIS AM. PT STATES FEEL LIKE SIATICA, PT STATES HAS BEEN SICK FOR A FEW DAYS, KIDS HAVE BEEN SICK. COUGH, RUNNY NOSE AND FEVER AT TIMES. Source of Information: Patient Exam Limitations: No Limitations History of Present Illness Date Seen by Provider: Apr 13, 2022 Time Seen by Provider: 07:18 Initial Comments 26-year-old female with past medical history of insulin-dependent diabetes comin g in due to left lower back pain. Started yesterday, has had a cough for couple days, fever yesterday. Has not had any antipyretics as of yet today. Multiple kids sick as well. She says it feels like sciatica like when she was . LMP less than a month ago, has had a tubal ligation. Otherwise denying any chest pain, shortness of breath, abdominal pain, vomiting, diarrhea, weakness, numbness, or any other concerns Allergies and Home Medications Allergies Coded Allergies: amoxicillin (Verified Allergy, Unknown, 11/13/21) sulfamethoxazole (Verified Allergy, Unknown, 11/13/21) trimethoprim (Verified Allergy, Unknown, 11/13/21) Patient Home Medication List Home Medication List Reviewed: Yes Cephalexin (Cephalexin) 500 Mg Tablet, 500 MG PO BID Prescribed by: STAN GONZALEZ on 12/15/21 1538 Insulin Aspart (Insulin Aspart Flexpen) 100 Unit/Ml (3 Ml) Insuln.pen, 1 UNITS SC SLIDING/SCALE Prescribed by: STAN GONZALEZ on 12/15/21 1538 Insulin Detemir (Levemir Flextouch) 100 Unit/Ml (3 Ml) Insuln.pen, 5 UNIT SQ BID Prescribed by: STAN GONZALEZ on 12/15/21 1538 Levothyroxine Sodium (Levothyroxine Sodium) 50 Mcg Tablet, 50 MCG PO DAILY, (Reported) Entered as Reported by: KARL CONNELLY on 12/15/21 1440 Ondansetron (Ondansetron Odt) 4 Mg Tab.rapdis, 4 MG SL Q6H PRN for MAYO SEA/VOMITING Prescribed by: BRITTANY BATISTA on 04/13/22 0916 Oseltamivir Phosphate (Tamiflu) 75 Mg Cap, 75 MG PO BID Prescribed by: BRITTANY BATISTA on 04/13/22 0916 Review of Systems Constitutional: fever EENTM: nose congestion Respiratory: cough Gastrointestinal: No abdominal pain Genitourinary: no symptoms reported Musculoskeletal: back pain Skin: no symptoms reported Psychiatric/Neurological: No Symptoms Reported All Other Systems Reviewed Negative Unless Noted: Yes Past Ahfmyub-Btnqjx-Lgwjdm Hx Patient Social History Tobacco Use?: No Substance use?: No Alcohol Use?: Yes Alcohol type: Wine Alcohol Frequency: Rarely Immunizations Up To Date Influenza Vaccine Up-to-Date: No; Not Current Past Medical History Surgery/Hospitalization HX: DIABETES, THYROID ISSUE, ALOPECIA, TUBAL Surgeries: Yes Tubal Ligation Respiratory: No Cardiac: No Neurological: No Last Menstrual Period: Mar 22, 2022 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 oz. kg; 23.00 BMI Method: General Appearance: No Apparent Distress, WD/WN HEENT: PERRL/EOMI, Normal ENT Inspection, Pharynx Normal Neck: Full Range of Motion, Normal Inspection, Non Tender, Supple Cardiovascular: No Edema, Normal Peripheral Pulses, Tachycardia Respiratory: Chest Non Tender, Lungs Clear, Normal Breath Sounds, No Accessory Muscle Use, No Respiratory Distress Gastrointestinal: Normal Bowel Sounds, Non Tender, Soft; No Distended, No Guarding Back: Normal Inspection, No Vertebral Tenderness, CVA Tenderness (L) Extremity: Normal Capillary Refill, Normal Inspection, Normal Range of Motion, Non Tender, No Calf Tenderness, No Pedal Edema, Other (Positive straight leg test on the left) Neurologic/Psychiatric: Alert, No Motor/Sensory Deficits, Normal Mood/Affect Skin: Normal Color, Warm/Dry Lymphatic: No Adenopathy Progress/Results/Core Measures Results/Orders Lab Results Laboratory Tests Test 04/13/22 07:40 Range/Units White Blood Count 6.1 4.3-11.0 10^3/uL Red Blood Count 4.24 3.80-5.11 10^6/uL Hemoglobin 12.7 11.5-16.0 g/dL Hematocrit 37 35-52 % Mean Corpuscular Volume 88 80-99 fL Mean Corpuscular Hemoglobin 30 25-34 pg Mean Corpuscular Hemoglobin Concent 34 32-36 g/dL Red Cell Distribution Width 12.3 10.0-14.5 % Platelet Count 238 130-400 10^3/uL Mean Platelet Volume 8.6 L 9.0-12.2 fL Immature Granulocyte % (Auto) 1 % Neutrophils (%) (Auto) 67 42-75 % Lymphocytes (%) (Auto) 19 12-44 % Monocytes (%) (Auto) 11 0-12 % Eosinophils (%) (Auto) 2 0-10 % Basophils (%) (Auto) 0 0-10 % Neutrophils # (Auto) 3.7 1.8-7.8 10^3/uL Lymphocytes # (Auto) 1.1 1.0-4.0 10^3/uL Monocytes # (Auto) 0.6 0.0-1.0 10^3/uL Eosinophils # (Auto) 0.1 0.0-0.3 10^3/uL Basophils # (Auto) 0.0 0.0-0.1 10^3/uL Immature Granulocyte # (Auto) 0.1 0.0-0.1 10^3/uL Sodium Level 138 135-145 MMOL/L Potassium Level 3.6 3.6-5.0 MMOL/L Chloride Level 105 98-107 MMOL/L Carbon Dioxide Level 21 21-32 MMOL/L Anion Gap 12 5-14 MMOL/L Blood Urea Nitrogen 18 7-18 MG/DL Creatinine 0.73 0.60-1.30 MG/DL Estimat Glomerular Filtration Rate 118 BUN/Creatinine Ratio 25 Glucose Level 60 *L 70-105 MG/DL Calcium Level 9.4 8.5-10.1 MG/DL Corrected Calcium 9.2 8.5-10.1 MG/DL Total Bilirubin 0.4 0.1-1.0 MG/DL Aspartate Amino Transf (AST/SGOT) 19 5-34 U/L Alanine Aminotransferase (ALT/SGPT) 17 0-55 U/L Alkaline Phosphatase 65 40-136 U/L Total Protein 7.3 6.4-8.2 GM/DL Albumin 4.2 3.2-4.5 GM/DL Influenza Type A (RT-PCR) Detected H Not Detecte Influenza Type B (RT-PCR) Not Detected Not Detecte SARS-CoV-2 RNA (RT-PCR) Not Detected Not Detecte My Orders Orders - BRITTANY BATISTA MD Cbc With Automated Diff (04/13/22 07:36) Comprehensive Metabolic Panel (04/13/22 07:36) Ua Culture If Indicated (04/13/22 07:36) Influenza A And B By Pcr (04/13/22 07:36) Ed Iv/Invasive Line Start (04/13/22 07:36) Covid 19 Inhouse Test (04/13/22 07:36) Ns Iv 1000 Ml (Sodium Chloride 0.9%) (04/13/22 07:36) Ketorolac Injection (Toradol Injection) (04/13/22 07:45) Ondansetron Injection (Zofran Injectio (04/13/22 07:45) Acetaminophen Tablet (Tylenol Tablet) (04/13/22 07:45) Ct Abdomen/Pelvis Wo (04/13/22 07:39) D50w (Emergency) Syringe (Dextrose 50% 5 (04/13/22 07:45) Medications Given in ED Current Medications Medications Dose Ordered Sig/Linden Route Start Time Stop Time Status Last Admin Dose Admin Acetaminophen 1,000 mg ONCE ONCE PO 04/13/22 07:45 04/13/22 07:46 DC 04/13/22 07:47 1,000 MG Dextrose 25 ml ONCE ONCE IV 04/13/22 07:45 04/13/22 07:46 DC 04/13/22 07:46 25 ML Ketorolac Tromethamine 15 mg ONCE ONCE IVP 04/13/22 07:45 04/13/22 07:46 DC 04/13/22 07:46 15 MG Ondansetron HCl 4 mg ONCE ONCE IVP 04/13/22 07:45 04/13/22 07:46 DC 04/13/22 07:47 4 MG Vital Signs/I&O 04/13/22 07:20 Temp 36.7 Pulse 116 Resp 18 B/P (MAP) 114/82 (93) Pulse Ox 99 Blood Pressure Mean: 93 Progress Progress Note : Progress Note 26-year-old female with above history coming in due to fever and left-sided flank pain. ABCs were intact and vitals were stable on presentation. Physical exam with general tenderness in her left flank. An IV was placed and basic labs were obtained and were essentially unremarkable other than her glucose was 60. She was given glucose with the repeat being more reassuring. She is tolerating p.o. here. Influenza test was otherwise positive. CT abdomen pelvis with right-sided adnexal cystic lesion, likely ovarian cyst. However follow-up with [facility] as an outpatient. She is having no abdominal tenderness at this time. Believe she is otherwise stable for discharge with outpatient follow-up. She was sent home with strict return precautions Diagnostic Imaging Diagonstic Imaging: CT (abd/pelvis) Comments [facility]. [place], [place] NAME: DIANE MCINTOSH [facility] REC#: [id number] PT STATUS: REG ER : 1995 PHYSICIAN: BRITTANY BATISTA MD ADMIT DATE: 04/13/22/ER Draft Date of Exam:04/13/22 CT ABDOMEN/PELVIS WO PROCEDURE: CT abdomen and pelvis without contrast. TECHNIQUE: Multiple contiguous axial images were obtained through the abdomen and pelvis without the use of intravenous contrast. Auto Exposure Controls were utilized during the CT exam to meet ALARA standards for radiation dose reduction. INDICATION: Left flank pain and fever. COMPARISON: No prior studies are available for comparison. FINDINGS: The lung bases are clear. The liver and gallbladder are unremarkable. There is no biliary ductal dilatation. The pancreas and spleen are unremarkable. No adrenal mass is identified. There is a punctate nonobstructing calculus in the right kidney. No left-sided renal calculi are seen. No definite ureteral calculi or evidence of hydronephrosis is identified. Aorta is nonaneurysmal. Bowel loops are of normal caliber. There is no free fluid identified. There is a large cystic lesion in the right adnexa adjacent to the uterus measuring 6.8 x 3.6 cm, likely ovarian. The left ovary and uterus are unremarkable. No inflammatory changes are identified. IMPRESSION: 1. Punctate nonobstructing right renal calculus. No definite ureteral calculi or hydronephrosis is detected. 2. Large right adnexal cyst, likely ovarian. Pelvic sonography may be useful for further evaluation. Dictated on workstation # [id number] Dict: 04/13/22826 Trans: 04/13/2239 [id number] Interpreted by: NELL MG MD Electronically signed by: Departure Impression Primary Impression: Influenza A Disposition: 01 HOME, SELF-CARE Condition: Stable Departure-Patient Inst. Decision time for Depature: 09:14 Referrals: ANTONINO VILLEDA DO NO,LOCAL PHYSICIAN (PCP) Primary Care Physician Patient Instructions: Flu, Adult ED Add. Discharge Instructions: You do unfortunately have influenza A. I suspect you could have fever for 3 to 4 days, body aches associated with this. Some people have nausea, vomiting, and diarrhea associated with it. Nausea medicines as well as Tamiflu was sent to your pharmacy. Tamiflu can cause nausea and vomiting as well. You have a large cyst, likely in your right ovary that is just under 7 cm. Please follow-up with a civil litigation attorney regarding this as soon as possible as this can cause pain and issues in the future. Dr. Villeda is a civil litigation attorney and his number is in this paperwork. Scripts Ondansetron (Ondansetron Odt) 4 Mg Tab.rapdis 4 MG SL Q6H PRN for NAUSEA/VOMITING for 5 Days, #20 TAB Prov: BRITTANY BATISTA MD 04/13/22 Oseltamivir Phosphate (Tamiflu) 75 Mg Cap 75 MG PO BID for 5 Days, #10 CAP Prov: BRITTANY BATISTA MD 04/13/22 Work/School Note: Work Release Form Date Seen in the Emergency Department: Apr 13, 2022 Return to Work: Apr 15, 2022 Restrictions: No Restrictions BRITTANY BATISTA MD Apr 13, 2022 07:39
[2022-04-13] MEDS ORDERED: ACETAMINOPHEN 500 MG TAB (TYLENOL) PO ONE (07:45)
[2022-04-13] MEDS ORDERED: ONDANSETRON 4 MG/2 ML (SDV) Z0FRAN IVP ONE (07:45)
[2022-04-13] MEDS ORDERED: KETOROLAC 30 MG/ML VIAL IVP ONE (07:45)
[2022-04-13] MEDS ORDERED: DEXTROSE 50% 50 ML (IMS) SYR IV ONE (07:45)
[2022-04-13 07:55] LABS: BASOPHILS % (AUTO) 0 % (0-10); EOSINOPHILS # (AUTO) 0.1 10^3/uL (0.0-0.3); EOSINOPHILS % (AUTO) 2 % (0-10); LYMPHOCYTES # (AUTO) 1.1 10^3/uL (1.0-4.0); LYMPHOCYTES % (AUTO) 19 % (12-44); MEAN CORPUSCULAR HGB CONC 34 g/dL (32-36); MEAN CORPUSCULAR VOLUME 88 fL (80-99); MEAN PLATELET VOLUME 8.6 fL (9.0-12.2); MONOCYTES # (AUTO) 0.6 10^3/uL (0.0-1.0); MONOCYTES % (AUTO) 11 % (0-12); NEUTROPHILS # (AUTO) 3.7 10^3/uL (1.8-7.8); NEUTROPHILS % (AUTO) 67 % (42-75)
[2022-04-13 07:58] LABS: HEMOGLOBIN 12.7 g/dL (11.5-16.0); MEAN CORPUSCULAR HEMOGLOBIN 30 pg (25-34)
[2022-04-13 07:59] LABS: HEMATOCRIT 37 % (35-52); PLATELET COUNT 238 10^3/uL (130-400)
[2022-04-13 08:00] LABS: WHITE BLOOD COUNT 6.1 10^3/uL (4.3-11.0)
[2022-04-13 08:14] LABS: ALBUMIN 4.2 GM/DL (3.2-4.5); BILIRUBIN,TOTAL 0.4 MG/DL (0.1-1.0); CALCIUM 9.4 MG/DL (8.5-10.1); CREATININE SERUM 0.73 MG/DL (0.60-1.30); POTASSIUM 3.6 MMOL/L (3.6-5.0); TOTAL PROTEIN 7.3 GM/DL (6.4-8.2)
--- NOTE | 2022-04-13 08:39 | Diagnostic Imaging Report ---
PROCEDURE: CT abdomen and pelvis without contrast. TECHNIQUE: Multiple contiguous axial images were obtained through the abdomen and pelvis without the use of intravenous contrast. Auto Exposure Controls were utilized during the CT exam to meet ALARA standards for radiation dose reduction. INDICATION: Left flank pain and fever. COMPARISON: No prior studies are available for comparison. FINDINGS: The lung bases are clear. The liver and gallbladder are unremarkable. There is no biliary ductal dilatation. The pancreas and spleen are unremarkable. No adrenal mass is identified. There is a punctate nonobstructing calculus in the right kidney. No left-sided renal calculi are seen. No definite ureteral calculi or evidence of hydronephrosis is identified. Aorta is nonaneurysmal. Bowel loops are of normal caliber. There is no free fluid identified. There is a large cystic lesion in the right adnexa adjacent to the uterus measuring 6.8 x 3.6 cm, likely ovarian. The left ovary and uterus are unremarkable. No inflammatory changes are identified. IMPRESSION: 1. Punctate nonobstructing right renal calculus. No definite ureteral calculi or hydronephrosis is detected. 2. Large right adnexal cyst, likely ovarian. Pelvic sonography may be useful for further evaluation. Dictated by: Dictated on workstation # [id number]
[2022-04-13] MEDS ORDERED: ONDA4TAB11 SL (09:16)
[2022-04-13] MEDS ORDERED: OSLT75C PO (09:16)
[2022-04-13 09:23] VITALS: BP 98/68
== END 2022-04-13 09:35 | disposition home or self-care (01) ==
LOC: EDUNIT# 07:14 → ER 07:18
DX: J10.1 Influenza due to other identified influenza virus with other respiratory manifestations (principal); D23.9 Other benign neoplasm of skin, unspecified; E10.9 Type 1 diabetes mellitus without complications; Z79.4 Long term (current) use of insulin; Z20.822 Contact with and (suspected) exposure to COVID-19; Z28.310 Unvaccinated for COVID-19
CPT/HCPCS: 36415; 74176; 80053; 85025; 87636

== ENCOUNTER 2022-05-16 21:04 | Emergency (ER) | payer MEDICAID ==
[~2022-05-16 21:04] MED LIST changes: +ONDA4TAB11 SL; +OSLT75C PO
--- NOTE | 2022-05-16 21:28 | ED Abdominal Pain ---
General Chief Complaint: Abdominal/GI Problems Stated Complaint: ABD PAIN Source of Information: Patient Exam Limitations: No Limitations (SYLVESTER BUSH) History of Present Illness Date Seen by Provider: May 16, 2022 Time Seen by Provider: 21:17 Initial Comments 26 F arrives to ED via EMS with pmh of hypothyroidism and poorly controlled T1DM for abdominal pain that started 1 hour ago. described as sharp stabbing non- radiating pain rated 7/10 at worst as is currently 3/10 located around the umbilicus. Pt states she also became dizzy when the pain started and has since subsided, but claims she feels "off still." Pt reports all she had to eat today was 1 bag of chips at 1900 and was not related to the pain. Notes last time she checked her glucose was 3-4 days ago and could not remember what the level was. mild nausea. States she is on Novalog and Lantis but unsure of amount. Denies any fever, chills, CP, SOB, troubles with voiding, and diarrhea. Last BM was this morning. LDMP was Mar 22 2022 and claims shes has had a tubal ligation. Timing/Duration: 1 Hour Severity/Quality: Mild Location: Periumbilical Radiation: No Radiation Activities at Onset: None Associated Symptoms: No Back Pain, No Diaphoresis, No Fever/Chills, No Headache, No Shortness of Air (SYLVESTER BUSH) Allergies and Home Medications Allergies Coded Allergies: amoxicillin (Verified Allergy, Unknown, 11/13/21) sulfamethoxazole (Verified Allergy, Unknown, 11/13/21) trimethoprim (Verified Allergy, Unknown, 11/13/21) Patient Home Medication List Home Medication List Reviewed: Yes (SYLVESTER BUSH) Cephalexin (Cephalexin) 500 Mg Tablet, 500 MG PO BID Prescribed by: STAN GONZALEZ on 12/15/211537 Insulin Aspart (Insulin Aspart Flexpen) 100 Unit/Ml (3 Ml) Insuln.pen, 1 UNITS SC SLIDING/SCALE Prescribed by: STAN GONZALEZ on 12/15/211537 Insulin Detemir (Levemir Flextouch) 100 Unit/Ml (3 Ml) Insuln.pen, 5 UNIT SQ BID Prescribed by: STAN GONZALEZ on 12/15/211537 Levothyroxine Sodium (Levothyroxine Sodium) 50 Mcg Tablet, 50 MCG PO DAILY, (Reported) Entered as Reported by: KARL CONNELLY on 12/15/21 1440 Ondansetron (Ondansetron Odt) 4 Mg Tab.rapdis, 4 MG SL Q6H PRN for NAUSEA/VOMITING Prescribed by: BRITTANY BATISTA on 04/13/22 0916 Oseltamivir Phosphate (Tamiflu) 75 Mg Cap, 75 MG PO BID Prescribed by: BRITTANY BATISTA on 04/13/22 0916 Review of Systems Review of Systems Constitutional: No chills, No diaphoresis; dizziness; No fever EENTM: No Blurred Vision, No Nose Congestion, No Throat Swelling Respiratory: Denies Cough, Denies Shortness of Air, Denies Wheezing Cardiovascular: Denies Chest Pain, Denies Edema, Denies Palpitations Gastrointestinal: Abdominal Pain; Denies Constipated, Denies Diarrhea; Nausea (mild ), Poor Fluid Intake; Denies Vomiting Genitourinary: Denies Burning, Denies Discharge, Denies Frequency, Denies Flank Pain Musculoskeletal: No back pain, No muscle pain Skin: No change in color, No lesions, No lumps Psychiatric/Neurological: Denies Headache, Denies Numbness Endocrine: Denies Intolerance to Cold, Denies Intolerance to Heat Hematologic/Lymphatic: No Symptoms Reported (SYLVESTER BUSH) Past Gewbxlc-Ghuqia-Uxmven Hx Patient Social History Tobacco Use?: No Alcohol Use?: Yes Alcohol Frequency: Rarely (SYLVESTER BUSH) Immunizations Up To Date Influenza Vaccine Up-to-Date: No; Not Current (SYLVESTER BUSH) Past Medical History Surgery/Hospitalization HX: DIABETES, THYROID ISSUE, ALOPECIA, TUBAL Surgeries: Yes Tubal Ligation Respiratory: No Cardiac: No 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 oz. kg; 23.00 BMI Method: General Appearance: WD/WN, no apparent distress HEENT: PERRL/EOMI, pharynx normal Neck: non-tender, supple, normal inspection Respiratory: chest non-tender, lungs clear, normal breath sounds, no respiratory distress, no accessory muscle use Cardiovascular: normal peripheral pulses, regular rate, rhythm, no edema, no murmur Peripheral Pulses: 3+ Dorsalis Pedis (R), 3+ Left Dors-Pedis (L), 3+ Radial Pulses (R), 3+ Radial Pulses (L) Gastrointestinal: normal bowel sounds, non tender (on light and deep palpation), soft, no organomegaly, no pulsatile mass Extremities: non-tender, normal inspection, no pedal edema, no calf tenderness, normal capillary refill Back: normal inspection, no CVA tenderness Neurologic/Psychiatric: steel finisher II-XII nml as tested, no motor/sensory deficits, alert, normal mood/affect, oriented x 3 Skin: normal color, warm/dry Lymphatic: no adenopathy (SAUCE,SYLVESTER) Progress/Results/Core Measures Results/Orders Lab Results Laboratory Tests Test 05/16/22 21:11 05/16/22 21:40 05/16/22 21:45 05/16/22 22:11 Range/Units Glucometer 300 H 241 H 70-110 MG/DL Urine Color YELLOW Urine Clarity CLEAR Urine pH 5.5 5-9 Urine Specific Headrick >=1.030 1.016-1.022 Urine Protein NEGATIVE NEGATIVE Urine Glucose (UA) 3+ H NEGATIVE Urine Ketones 2+ H NEGATIVE Urine Nitrite NEGATIVE NEGATIVE Urine Bilirubin NEGATIVE NEGATIVE Urine Urobilinogen 0.2 < = 1.0 MG/DL Urine Leukocyte Esterase NEGATIVE NEGATIVE Urine RBC (Auto) NEGATIVE NEGATIVE Urine RBC NONE /HPF Urine WBC 0-2 /HPF Urine Squamous Epithelial Cells 0-2 /HPF Urine Crystals NONE /LPF Urine Bacteria TRACE /HPF Urine Casts NONE /LPF Urine Mucus SMALL H /LPF Urine Culture Indicated NO SARS-CoV-2 RNA (RT-PCR) Not Detected Not Detecte (JOSE LUIS TOLENTINO MD) My Orders Orders - JOSE LUIS TOLENTINO MD Urinalysis (05/16/22 21:24) Urine Bedside (05/16/22 21:24) Covid 19 Inhouse Test (05/16/22 21:33) Isolation Central Supply Req (05/16/22 21:33) Ondansetron Oral Dissolve Tab (Zofran (05/16/22 21:33) Acetaminophen Tablet (Tylenol Tablet) (05/16/22 21:45) Accucheck Stat ONCE (05/16/22 22:25) (JOSE LUIS TOLENTINO MD) Medications Given in ED Current Medications Medications Dose Ordered Sig/Linden Route Start Time Stop Time Status Last Admin Dose Admin Acetaminophen 1,000 mg ONCE ONCE PO 05/16/22 21:45 05/16/22 21:46 DC 05/16/22 21:45 1,000 MG (JOSE LUIS TOLENTINO MD) Vital Signs/I&O 05/16/22 21:06 Temp 36.6 Pulse 79 Resp 16 B/P (MAP) 115/85 (95) Pulse Ox 100 O2 Delivery Room Air (JOSE LUIS TOLENTINO MD) [facility] Bedside Testing Finger Stick Blood Glucose: 300 Blood Glucose Action Taken: RN NOTIFIED (SYLVESTER BUSH) Progress Progress Note : Time: 23:04 Progress Note Charissa's covid is negative. Urine concerntrated and slightly hyperglycemic (glucose in urine as well) no evidence of UTI. belly pain better. (JOSE LUIS TOLENTINO MD) Departure Impression Primary Impression: Abdominal pain Qualified Codes: R10.9 - Unspecified abdominal pain Additional Impression: Hyperglycemia due to diabetes mellitus Disposition: 01 HOME, SELF-CARE Condition: Stable Departure-Patient Inst. Decision time for Depature: 23:05 (JOSE LUIS TOLENTINO MD) Referrals: [facility],LOCAL PHYSICIAN (PCP) Primary Care Physician Patient Instructions: Abdominal Pain, Adult ED Add. Discharge Instructions: Monitor yourself for worsening abdominal pain, If you develop fever, persistent nausea and vomiting, vomiting blood, please come back to the Emergency Department for re-evaluation. You can take over the counter tylenol or ibuprofen as needed for mild symptoms, but if they are worsening please come back to the ER for re-evaluation. You need to weak your monitor and watch your blood sugars closely, as this will help prevent illness in the future. PLease follow up with your primary doctor. Verification and Attestation of Medical Student E/M Service A medical student performed and documented this service in my presence. I reviewed and verified all information documented by the medical student and made modifications to such information, when appropriate. I personally performed the physical exam and medical decision making. Jose Luis Tolentino, May 16, 2022,23:07 (JOSE LUIS TOLENTINO MD) Copy Copies To 1: VINICIO MERRITT DAULTON May 16, 2022 21:28 JOSE LUIS TOLENTINO MD May 16, 2022 23:08
[2022-05-16] MEDS ORDERED: ONDANSETRON 4 MG (ZOFRAN) ORAL DISSOLVE TAB PO STA (21:33)
[2022-05-16] MEDS ORDERED: ACETAMINOPHEN 500 MG TAB (TYLENOL) PO ONE (21:45)
[2022-05-16 21:47] LABS: BILIRUBIN,URINE NEGATIVE (NEGATIVE); CLARITY,URINE CLEAR; COLOR,URINE YELLOW; GLUCOSE, URINE (UA) 3+ (NEGATIVE); KETONES,URINE 2+ (NEGATIVE); LEUKOCYTE ESTERASE ,URINE NEGATIVE (NEGATIVE); NITRITE,URINE NEGATIVE (NEGATIVE); PH,URINE 5.5 (5-9); PROTEIN,URINE NEGATIVE (NEGATIVE)
[2022-05-16 22:08] LABS: BACTERIA,URINE TRACE /HPF; SQUAMOUS EPITHELIAL CELL,UR 0-2 /HPF; WBC,URINE 0-2 /HPF
[2022-05-16 23:30] VITALS: BP 110/71
== END 2022-05-16 23:32 | disposition home or self-care (01) ==
LOC: EDUNIT# 21:04 → ER 21:05
DX: E10.65 Type 1 diabetes mellitus with hyperglycemia (principal); Z20.822 Contact with and (suspected) exposure to COVID-19; Z28.310 Unvaccinated for COVID-19; Z79.4 Long term (current) use of insulin
CPT/HCPCS: 81000; 82947; 84703; 87636

== ENCOUNTER 2022-05-24 00:24 | Emergency (ER) | payer MEDICAID ==
[~2022-05-24] VITALS: Ht 160 cm; Wt 56.0 kg
[2022-05-24] MEDS ORDERED: FLUT16SP22 (00:33)
--- NOTE | 2022-05-24 01:38 | ED Upper Extremity ---
General Chief Complaint: Upper Extremity Stated Complaint: L THUMB PAIN Nursing Triage Note: REPORTS WAKING UP WITH DISTAL END OF LEFT THUMB BLACK/VALLE 05/22/22, REPORTS THUMB PALE & PAINFUL TONIGHT. DENIES INJURY. Source: patient Exam Limitations: no limitations (HIWOT SIMENTAL) History of Present Illness Date Seen by Provider: May 24, 2022 Time Seen by Provider: 00:40 Initial Comments This is a 26yo F with pmhx of T1DM and hypothyroidism who presents for left thumb pain. Pt reports left thumb, finger #1 pain since yesterday [id number] in the morning when she woke up. Pt initially noticed a black/van bruise under her thumbnail which then progressed to the tip of her thumb turning white with some erythema of the surrounding thumb. Pain rated at 6/10. Endorses the feeling of numbness, burning, and throbbing that is intermittent. Also endorses that the pain prevents her from sleeping and makes her feel nauseated with subsequent v omiting. Pt denies any trauma to the finger. Onset: yesterday Severity: moderate Pain/Injury Location: left thumb Method of Injury: unknown (HIWOT SIMENTAL) Allergies and Home Medications Allergies Coded Allergies: sulfamethoxazole (Verified Allergy, Mild, Rash, 05/24/22) trimethoprim (Verified Allergy, Mild, Rash, 05/24/22) amoxicillin (Verified Adverse Reaction, Unknown, Vomiting, 05/24/22) Patient Home Medication List Home Medication List Reviewed: Yes (ELIZABETH MARIE MD) Cephalexin (Cephalexin) 500 Mg Tablet, 500 MG PO QID Prescribed by: ELIZABETH CARVAJAL on 05/24/22210 Doxycycline Hyclate (Doxycycline Hyclate) 100 Mg Tablet, 100 MG PO BID Prescribed by: ELIZABETH CARVAJAL on 05/24/22210 Fluticasone Propionate (Fluticasone Propionate) 50 Mcg/Actuation [place].susp, (Reported) Entered as Reported by: ANGY HODGES on 05/24/22 003 Last Action: New Order Insulin Aspart (Insulin Aspart Flexpen) 100 Unit/Ml (3 Ml) Insuln.pen, 1 UNITS SC SLIDING/SCALE Prescribed by: STAN GONZALEZ on 12/15/21 1098 Last Action: Last Taken Edited Insulin Detemir (Levemir Flextouch) 100 Unit/Ml (3 Ml) Insuln.pen, 5 UNIT SQ BID Prescribed by: STAN GONZALEZ on 12/15/211537 Last Action: Last Taken Edited Levothyroxine Sodium (Levothyroxine Sodium) 50 Mcg Tablet, 50 MCG PO DAILY, (Reported) Entered as Reported by: KARL CONNELLY on 12/15/21 1440 Last Action: Last Taken Edited Discontinued Medications Cephalexin (Cephalexin) 500 Mg Tablet, 500 MG PO BID Discontinued Reason: No Longer Taking Prescribed by: STAN GONZALEZ on 12/15/211537 Last Action: Discontinued Ondansetron (Ondansetron Odt) 4 Mg Tab.rapdis, 4 MG SL Q6H PRN for NAUSEA/VOMITING Discontinued Reason: No Longer Taking Prescribed by: BRITTANY BATISTA on 04/13/22915 Last Action: Discontinued Oseltamivir Phosphate (Tamiflu) 75 Mg Cap, 75 MG PO BID Discontinued Reason: No Longer Taking Prescribed by: BRITTANY BATISTA on 04/13/22915 Last Action: Discontinued Review of Systems Constitutional: no symptoms reported Respiratory: no symptoms reported Cardiovascular: no symptoms reported Gastrointestinal: nausea (occurs when pain gets worse), vomiting (occurrs when she gets nauseated) : No (Pt reports b/l tubal ligation) Musculoskeletal: no symptoms reported Skin: no symptoms reported (HIWOT SIMENTAL) Past Teznzpp-Ghngal-Uyfyni Hx Patient Social History Tobacco Use?: No Substance use?: No Alcohol Use?: Yes Alcohol Frequency: Once in a while Pt feels they are or have been: No (HIWOT SIMENTAL) Immunizations Up To Date First/Initial COVID19 Vaccinat: NA (HIWOT SIMENTAL) Past Medical History Surgery/Hospitalization HX: IDDM, HYPOTHRYOIDISM, ALOPECIA, TUBAL Surgeries: Yes Tubal Ligation Respiratory: No Cardiac: No 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 oz. kg; 21.00 BMI Method: General Appearance: WD/WN, mild distress Cardiovascular: regular rate, rhythm, no edema, no murmur Respiratory: chest non-tender, lungs clear, normal breath sounds, no respiratory distress, no accessory muscle use Gastrointestinal: normal bowel sounds, non tender, soft Wrist: Yes normal inspection (left), Yes non-tender (left), Yes no evidence of injury (left), Yes normal ROM (left) Hand: Left (left thumb, finger #1, has a 1cm circular pale, well demarcated, fluid filled appearing area at the distal portion. Fluid appears to be purulent. Appreciable surrounding area of erythema. Normal ROM and sensation) (HIWOT SIMENTAL) Procedures/Interventions I&D : Blade Size: 11 Progress Thumb tip was soaked in lidocaine. Skin was then cleaned with alcohol pads. Scalpel was used to puncture the center of the abscess. Purulent fluid was then expressed and culture was obtained. Purulent material was continuously milked out of the abscess area until no further purulent material could be produced. Patient tolerated the procedure well. (ELIZABETH MARIE MD) Progress/Results/Core Measures Results/Orders Lab Results Laboratory Tests Test 05/24/22 02:03 Range/Units Glucometer 70 70-110 MG/DL (ELIZABETH MARIE MD) My Orders Orders - ELIZABETH MARIE MD Wound Culture (05/24/22 01:08) Accucheck Stat ONCE (05/24/22 01:59) Doxycycline Hyclate Tablet (Vibramycin T (05/24/22 02:15) Cephalexin Capsule (Keflex Capsule) (05/24/22 09:00) Cephalexin Capsule (Keflex Capsule) (05/24/22 02:11) (ELIZABETH MARIE MD) Medications Given in ED Current Medications Medications Dose Ordered Sig/Linden Route Start Time Stop Time Status Last Admin Dose Admin Doxycycline Hyclate 100 mg ONCE ONCE PO 05/24/22 02:15 05/24/22 02:16 DC 05/24/22 02:14 100 MG (ELIZABETH MARIE MD) Vital Signs/I&O 05/24/22 05/24/22 00:28 02:16 Temp 36.9 36.9 Pulse 83 79 Resp 16 16 B/P (MAP) 130/96 (107) 125/90 Pulse Ox 99 O2 Delivery Room Air Room Air (ELIZABETH MARIE MD) Blood Pressure Mean: 107 Progress Progress Note : Progress Note Patient was interviewed and examined by me along with MS 4. Patient was found to have an abscess on the tip of her left thumb. Incision and drainage was performed with collection of culture. Antibiotic therapy was initiated and patient was discharged in good condition. (ELIZABETH MARIE MD) Departure Impression Primary Impression: Abscess of thumb, left Additional Impression: Hypoglycemia Disposition: 01 HOME, SELF-CARE Condition: Improved Departure-Patient Inst. Decision time for Depature: 02:09 (ELIZABETH MARIE MD) Referrals: [facility] [place] (PCP/Family) Primary Care Physician Patient Instructions: Low Blood Sugar in People With Diabetes, Abscess Incision and Drainage ED Add. Discharge Instructions: Complete your antibiotics as prescribed. Follow-up with your primary care provider on Wednesday. After 48 hours you should be able to review cultures from the abscess with your doctor. Please review results of the culture with your doctor to ensure the antibiotics you are taking are appropriate for the type of bacteria grown in the culture. You may take Tylenol and/or ibuprofen for pain. Soak your thumb in warm soapy water for 15 to 30 minutes when you return home. Gently express any accumulated drainage from the incision. Repeat this process several times a day until the wound stops draining pus. Return to the emergency room if you have worsening symptoms despite following these instructions or if you develop new symptoms such as fever. Monitor your blood sugars closely and discuss blood sugar management with your primary care provider soon as possible. All discharge instructions reviewed with patient and/or family. Voiced understanding. Scripts Doxycycline Hyclate (Doxycycline Hyclate) 100 Mg Tablet 100 MG PO BID, #14 TAB 0 Refills Prov: ELIZABETH MARIE MD 05/24/22 Cephalexin (Cephalexin) 500 Mg Tablet 500 MG PO QID, #28 TAB Prov: ELIZABETH MARIE MD 05/24/22 Medical Student Attestation and Attending Note: I have personally interviewed and examined this patient along with Hiwot Simental, MS 4. I have reviewed student documentation including history, physical, and assessments. I agree with the documentation except where otherwise noted. Exam: General: Alert, oriented, no acute distress, well developed, thin HEENT: Normocephalic and atraumatic Heart: Regular rate and rhythm without murmur Lungs: Clear to auscultation bilaterally with normal effort Extremities: Distal left thumb tender to palpation with blister on the tip containing purulent material. Surrounding erythema. Neuropsych: Alert, oriented, no focal deficits Skin: Warm and dry without rashes (ELIZABETH MARIE MD) Copy Copies To 1: [facility]/HIWOT TEJADA May 24, 2022 01:38 ELIZABETH MARIE MD May 24, 2022 02:13
[2022-05-24] MEDS ORDERED: DOXY100T2 PO (02:11)
[2022-05-24] MEDS ORDERED: CEPH500T PO (02:11)
[2022-05-24] MEDS ORDERED: CEPHALEXIN 250 MG (KEFLEX) CAP PO ONE (02:11)
[2022-05-24] MEDS ORDERED: DOXYCYCLINE 100 MG (VIBRAMYCIN) TABLET PO ONE (02:15)
[2022-05-24 02:16] VITALS: BP 125/90
[2022-05-24] MEDS ORDERED: CEPHALEXIN 250 MG (KEFLEX) CAP PO SCH (09:00)
== END 2022-05-24 02:17 | disposition home or self-care (01) ==
LOC: EDUNIT# 00:24 → ER 00:25
DX: L02.512 Cutaneous abscess of left hand (principal); E10.649 Type 1 diabetes mellitus with hypoglycemia without coma; Z88.0 Allergy status to penicillin; Z28.310 Unvaccinated for COVID-19
CPT/HCPCS: 82947; 87070; 87077; 87205

== ENCOUNTER 2022-06-08 16:27 | Emergency (ER) | payer MEDICAID ==
[~2022-06-08] VITALS: Ht 160 cm; Wt 56.2 kg
[~2022-06-08 16:27] MED LIST changes: +DOXY100T2 PO; +FLUT16SP22
[2022-06-08 16:42] LABS: BASOPHILS % (AUTO) 1 % (0-10); EOSINOPHILS # (AUTO) 0.1 10^3/uL (0.0-0.3); EOSINOPHILS % (AUTO) 3 % (0-10); HEMATOCRIT 39 % (35-52); LYMPHOCYTES # (AUTO) 1.5 10^3/uL (1.0-4.0); LYMPHOCYTES % (AUTO) 29 % (12-44); MEAN CORPUSCULAR HEMOGLOBIN 30 pg (25-34); MEAN CORPUSCULAR HGB CONC 34 g/dL (32-36); MEAN CORPUSCULAR VOLUME 89 fL (80-99); MEAN PLATELET VOLUME 9.8 fL (9.0-12.2); MONOCYTES # (AUTO) 0.4 10^3/uL (0.0-1.0); MONOCYTES % (AUTO) 7 % (0-12); NEUTROPHILS # (AUTO) 3.2 10^3/uL (1.8-7.8); NEUTROPHILS % (AUTO) 61 % (42-75); PLATELET COUNT 242 10^3/uL (130-400); WHITE BLOOD COUNT 5.2 10^3/uL (4.3-11.0)
[2022-06-08 16:50] LABS: BILIRUBIN,URINE NEGATIVE (NEGATIVE); CLARITY,URINE CLEAR; COLOR,URINE YELLOW; GLUCOSE, URINE (UA) 3+ (NEGATIVE); KETONES,URINE NEGATIVE (NEGATIVE); LEUKOCYTE ESTERASE ,URINE 1+ (NEGATIVE); NITRITE,URINE NEGATIVE (NEGATIVE); PROTEIN,URINE NEGATIVE (NEGATIVE)
[2022-06-08] MEDS ORDERED: KETOROLAC 30 MG/ML VIAL IVP STA (16:51)
[2022-06-08 16:54] LABS: ALBUMIN 4.2 GM/DL (3.2-4.5); POTASSIUM 3.7 MMOL/L (3.6-5.0)
[2022-06-08 16:55] LABS: CALCIUM 9.3 MG/DL (8.5-10.1)
[2022-06-08 16:56] LABS: TOTAL PROTEIN 6.8 GM/DL (6.4-8.2)
[2022-06-08 16:58] LABS: BILIRUBIN,TOTAL 0.6 MG/DL (0.1-1.0)
[2022-06-08 17:00] LABS: CREATININE SERUM 0.77 MG/DL (0.60-1.30)
[2022-06-08] MEDS ORDERED: ONDANSETRON 4 MG/2 ML (SDV) Z0FRAN IVP ONE (17:00)
[2022-06-08] MEDS ORDERED: NS IV 1000 ML 1,000 ML IV SCH (17:00)
--- NOTE | 2022-06-08 17:01 | ED Abdominal Pain ---
General Chief Complaint: Abdominal/GI Problems Stated Complaint: ABD PAIN Nursing Triage Note: PT BROUGHT IN BY [facility] FROM HOME WITH COMPLAINT OF ABD PAIN AND LOW BACK PAIN. STATES PAIN STARTED TODAY, BUT HAS HAD IT INTERMITTENTLY FOR A WHILE. COMPLAINS OF NAUSEA. Source of Information: Patient Exam Limitations: No Limitations (RAYA SMITH APRN) History of Present Illness Date Seen by Provider: Jun 08, 2022 Time Seen by Provider: 16:32 Initial Comments 26-year-old female presents with abdominal pain starting 1 hour prior to arri amarilys. States the pain is worse with standing. Reports mid epigastric pain that radiates down to lower abdomen. Also reports sharp left-sided lower back pain. States her pain is better when she lies down. Also reports slight midsternal chest pain starting at the same time. She reports that she did eat just prior to the pain starting. Denies fever/chills, denies headache, denies cough, denies shortness of air. Reports some nausea, denies vomiting. Last bowel movement was yesterday and was normal. Denies vaginal bleeding/discharge, denies dysuria. Last menstrual cycle was 05/19/2022. Past medical history includes diabetes type 1 and hypothyroidism. Currently takes levothyroxine, NovoLog sliding scale, and Levemir twice daily. (RAYA SMITH APRN) Allergies and Home Medications Allergies Coded Allergies: sulfamethoxazole (Verified Allergy, Mild, Rash, 05/24/22) trimethoprim (Verified Allergy, Mild, Rash, 05/24/22) amoxicillin (Verified Adverse Reaction, Unknown, Vomiting, 05/24/22) Patient Home Medication List Home Medication List Reviewed: Yes (RAYA SMITH APRN) Cephalexin (Cephalexin) 500 Mg Tablet, 500 MG PO QID Prescribed by: ELIZABETH CARVAJAL on 05/24/22210 Doxycycline Hyclate (Doxycycline Hyclate) 100 Mg Tablet, 100 MG PO BID Prescribed by: ELIZABETH CARVAJAL on 05/24/22210 Fluticasone Propionate (Fluticasone Propionate) 50 Mcg/Actuation [place].susp, (Reported) Entered as Reported by: ANGY HODGES on 05/24/22 0033 Insulin Aspart (Insulin Aspart Flexpen) 100 Unit/Ml (3 Ml) Insuln.pen, 1 UNITS SC SLIDING/SCALE Prescribed by: STAN GONZALEZ on 12/15/21 153 Insulin Detemir (Levemir Flextouch) 100 Unit/Ml (3 Ml) Insuln.pen, 5 UNIT SQ BID Prescribed by: STAN GONZALEZ on 12/15/21 153 Levothyroxine Sodium (Levothyroxine Sodium) 50 Mcg Tablet, 50 MCG PO DAILY, (Reported) Entered as Reported by: KARL CONNELLY on 12/15/21 1440 Nitrofurantoin Macrocrystal (Nitrofurantoin) 100 Mg Capsule, 100 MG PO BID Prescribed by: Raya Smith on 06/08/22 1820 Review of Systems Review of Systems Constitutional: see HPI (RAYA SMITH APRN) Past Apbnmhd-Tiylcr-Utahnj Hx Patient Social History Tobacco Use?: No Use of E-Cig and/or Vaping dev: No Substance use?: No Alcohol Use?: No Pt feels they are or have been: No (RAYA SMITH APRN) Immunizations Up To Date First/Initial COVID19 Vaccinat: NA Second COVID19 Vaccination [place]: NA Third COVID19 Vaccination Date: NA (RAYA SMITH APRN) Past Medical History Surgery/Hospitalization HX: IDDM, HYPOTHRYOIDISM, ALOPECIA, TUBAL Surgeries: Yes Tubal Ligation Respiratory: No Cardiac: No 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 oz. 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) Progress/Results/Core Measures Results/Orders Lab Results Laboratory Tests Test 06/08/22 16:33 06/08/22 16:35 Range/Units White Blood Count 5.2 4.3-11.0 10^3/uL Red Blood Count 4.34 3.80-5.11 10^6/uL Hemoglobin 13.0 11.5-16.0 g/dL Hematocrit 39 35-52 % Mean Corpuscular Volume 89 80-99 fL Mean Corpuscular Hemoglobin 30 25-34 pg Mean Corpuscular Hemoglobin Concent 34 32-36 g/dL Red Cell Distribution Width 12.8 10.0-14.5 % Platelet Count 242 130-400 10^3/uL Mean Platelet Volume 9.8 9.0-12.2 fL Immature Granulocyte % (Auto) 0 % Neutrophils (%) (Auto) 61 42-75 % Lymphocytes (%) (Auto) 29 12-44 % Monocytes (%) (Auto) 7 0-12 % Eosinophils (%) (Auto) 3 0-10 % Basophils (%) (Auto) 1 0-10 % Neutrophils # (Auto) 3.2 1.8-7.8 10^3/uL Lymphocytes # (Auto) 1.5 1.0-4.0 10^3/uL Monocytes # (Auto) 0.4 0.0-1.0 10^3/uL Eosinophils # (Auto) 0.1 0.0-0.3 10^3/uL Basophils # (Auto) 0.0 0.0-0.1 10^3/uL Immature Granulocyte # (Auto) 0.0 0.0-0.1 10^3/uL Sodium Level 137 135-145 MMOL/L Potassium Level 3.7 3.6-5.0 MMOL/L Chloride Level 105 98-107 MMOL/L Carbon Dioxide Level 22 21-32 MMOL/L Anion Gap 10 5-14 MMOL/L Blood Urea Nitrogen 17 7-18 MG/DL Creatinine 0.77 0.60-1.30 MG/DL Estimat Glomerular Filtration Rate 110 BUN/Creatinine Ratio 22 Glucose Level 244 H 70-105 MG/DL Glucometer 234 H 70-110 MG/DL Calcium Level 9.3 8.5-10.1 MG/DL Corrected Calcium 9.1 8.5-10.1 MG/DL Total Bilirubin 0.6 0.1-1.0 MG/DL Aspartate Amino Transf (AST/SGOT) 14 5-34 U/L Alanine Aminotransferase (ALT/SGPT) 13 0-55 U/L Alkaline Phosphatase 61 40-136 U/L Troponin I < 0.028 <0.028 NG/ML Total Protein 6.8 6.4-8.2 GM/DL Albumin 4.2 3.2-4.5 GM/DL Amylase Level 50 25-125 U/L Lipase 19 8-78 U/L Urine Color YELLOW Urine Clarity CLEAR Urine pH 7.0 5-9 Urine Specific [place] 1.020 1.016-1.022 Urine Protein NEGATIVE NEGATIVE Urine Glucose (UA) 3+ H NEGATIVE Urine Ketones NEGATIVE NEGATIVE Urine Nitrite NEGATIVE NEGATIVE Urine Bilirubin NEGATIVE NEGATIVE Urine Urobilinogen 1.0 < = 1.0 MG/DL Urine Leukocyte Esterase 1+ H NEGATIVE Urine RBC (Auto) NEGATIVE NEGATIVE Urine RBC NONE /HPF Urine WBC 5-10 H /HPF Urine Squamous Epithelial Cells 5-10 /HPF Urine Crystals NONE /LPF Urine Bacteria FEW H /HPF Urine Casts NONE /LPF Urine Mucus NEGATIVE /LPF Urine Culture Indicated YES (ELIZABETH MARIE MD) Vital Signs/I&O 06/08/22 06/08/22 16:30 18:55 Temp 36.0 Pulse 73 70 Resp 16 14 B/P (MAP) 108/75 (86) 105/72 Pulse Ox 100 100 O2 Delivery Room Air Room Air (ELIZABETH MARIE MD) Blood Pressure Mean: 86 FSBG Bedside Testing Finger Stick Blood Glucose: 234 (RAYA SMITH APRN) Progress Progress Note #1: Time: 16:59 Progress Note Patient seen and evaluated, resting comfortably in bed, no acute distress. Based on exam and symptoms, differential diagnosis includes but is not limited to cholecystitis, pancreatitis, GERD, UTI, kidney stones. Work-up initiated including CBC, CMP, amylase, lipase, troponin, EKG, UA, urine , Accu- Chek. IV fluids and pain and nausea medication ordered. Considered CT abdomen pelvis, patient is nontender with a soft abdomen. Will wait for lab results. Progress Note #2: Time: 18:07 Progress Note Labs reviewed. CBC grossly normal. CMP grossly normal except elevated glucose at 244. Amylase and lipase negative. Troponin negative. UA positive for 3+ glucose, 1+ leukocytes, white blood cells 5-10, few bacteria. We will treat for urinary tract infection with Rocephin and Macrobid. Will order outpatient ultrasound of gallbladder. Patient given discharge instructions and return precautions. (RAYA SMITH APRN) Initial ECG Impression Date: Jun 08, 2022 Initial ECG Impression Time: 17:02 Initial ECG Rate: 74 Initial ECG Rhythm: Normal Sinus Initial ECG Intervals: Normal Initial ECG Impression: Normal Initial ECG Comparisson: Unchanged (RAYA SMITH APRN) Departure Impression Primary Impression: Urinary tract infection Qualified Codes: N30.00 - Acute cystitis without hematuria Disposition: HOME, SELF-CARE Condition: Stable Departure-Patient Inst. Decision time for Depature: 18:19 (RAYA SMITH APRN) Referrals: [facility] [place] (PCP/Family) Primary Care Physician Patient Instructions: Urinary Tract Infection, Adult (DC) Add. Discharge Instructions: Complete full course of antibiotic, even if you begin to feel better. Complete outpatient ultrasound. You may take Tylenol or ibuprofen as needed for pain. Follow-up with your primary care provider. Return for high fevers, uncontrollable pain, recurrent vomiting, or any other new, concerning, or worsening symptoms. All discharge instructions reviewed with patient and/or family. Voiced understanding. Scripts Nitrofurantoin Macrocrystal (Nitrofurantoin) 100 Mg Capsule 100 MG PO BID for 5 Days, #10 CAP Prov: RAYA SMITH APRN 06/08/22 ATTENDING PHYSICIAN NOTE: I was physically present as attending physician in the emergency department dur ing the care of this patient, but I was not directly involved in the decision making or delivery of care for this patient. (ELIZABETH MARIE MD) RAYA SMITH APRN Jun 08, 2022 17:01 ELIZABETH MARIE MD Jun 10, 2022 05:44
[2022-06-08 17:12] LABS: BACTERIA,URINE FEW /HPF
[2022-06-08] MEDS ORDERED: cefTRIAXone 1 GM PRE-MIX 50 ML IV ONE (18:15)
[2022-06-08] MEDS ORDERED: NITR100C PO (18:20)
[2022-06-08 18:55] VITALS: BP 105/72
== END 2022-06-08 18:55 | disposition home or self-care (01) ==
LOC: EDUNIT# 16:27 → ER 16:28
DX: N39.0 Urinary tract infection, site not specified (principal); E10.65 Type 1 diabetes mellitus with hyperglycemia; E03.9 Hypothyroidism, unspecified; Z88.0 Allergy status to penicillin; Z79.899 Other long term (current) drug therapy
CPT/HCPCS: 36415; 80053; 81000; 82150; 82947; 83690; 84484; 84703; 85025; 87088; 93005

== ENCOUNTER 2022-06-19 21:57 | Emergency (ER) | payer MEDICAID ==
[~2022-06-19] VITALS: Ht 160 cm; Wt 56.7 kg
[~2022-06-19 21:57] MED LIST changes: +NITR100C PO
[2022-06-19 22:00] VITALS: BP 109/67
[2022-06-19] MEDS ORDERED: DEXTROSE 50% 50 ML (IMS) SYR ONE (22:07)
[2022-06-19] MEDS ORDERED: DEXTROSE 10% IV SOLUTION 250 ML IV ONE (22:08)
[2022-06-19] MEDS ORDERED: DEXTROSE 10% IV SOLUTION 250 ML IV SCH (22:15)
[2022-06-19] MEDS ORDERED: D5 1/2 NS 1000 ML IV SOLUTION 1,000 ML IV ONE (22:15)
[2022-06-19 22:18] LABS: BASOPHILS % (AUTO) 0 % (0-10); EOSINOPHILS # (AUTO) 0.2 10^3/uL (0.0-0.3); EOSINOPHILS % (AUTO) 3 % (0-10); HEMATOCRIT 39 % (35-52); HEMOGLOBIN 13.3 g/dL (11.5-16.0); LYMPHOCYTES # (AUTO) 2.7 10^3/uL (1.0-4.0); LYMPHOCYTES % (AUTO) 41 % (12-44); MEAN CORPUSCULAR HEMOGLOBIN 30 pg (25-34); MEAN CORPUSCULAR HGB CONC 34 g/dL (32-36); MEAN CORPUSCULAR VOLUME 89 fL (80-99); MEAN PLATELET VOLUME 9.5 fL (9.0-12.2); MONOCYTES # (AUTO) 0.5 10^3/uL (0.0-1.0); MONOCYTES % (AUTO) 8 % (0-12); NEUTROPHILS # (AUTO) 3.2 10^3/uL (1.8-7.8); NEUTROPHILS % (AUTO) 48 % (42-75); PLATELET COUNT 298 10^3/uL (130-400); WHITE BLOOD COUNT 6.6 10^3/uL (4.3-11.0)
[2022-06-19 22:35] LABS: BILIRUBIN,URINE NEGATIVE (NEGATIVE); CLARITY,URINE CLEAR; COLOR,URINE YELLOW; GLUCOSE, URINE (UA) 2+ (NEGATIVE); KETONES,URINE NEGATIVE (NEGATIVE); LEUKOCYTE ESTERASE ,URINE 1+ (NEGATIVE); NITRITE,URINE NEGATIVE (NEGATIVE); PROTEIN,URINE TRACE (NEGATIVE)
--- NOTE | 2022-06-19 22:38 | ED Headache ---
General Chief Complaint: Head/Cervical Problems Stated Complaint: HEADACHE Nursing Triage Note: Pt presents via EMS with c/o migraine headache. Pt reports pain started at approx 2030, she took 3 tylenol without relief. Source: patient (LIMITED HISTORIAN--STATES SHE CAN'T REMEMBER, TO MOST QUESTIONS, ), old records Allergies and Home Medications Allergies Coded Allergies: sulfamethoxazole (Verified Allergy, Mild, Rash, 05/24/22) trimethoprim (Verified Allergy, Mild, Rash, 05/24/22) amoxicillin (Verified Adverse Reaction, Unknown, Vomiting, 05/24/22) Patient Home Medication List Cephalexin (Cephalexin) 500 Mg Tablet, 500 MG PO QID Prescribed by: ELIZABETH CARVAJAL on 05/24/22210 Doxycycline Hyclate (Doxycycline Hyclate) 100 Mg Tablet, 100 MG PO BID Prescribed by: ELIZABETH CARVAJAL on 05/24/22210 Fluticasone Propionate (Fluticasone Propionate) 50 Mcg/Actuation [place].susp, (Reported) Entered as Reported by: ANGY HODGES on 05/24/22 0033 Insulin Aspart (Insulin Aspart Flexpen) 100 Unit/Ml (3 Ml) Insuln.pen, 1 UNITS SC SLIDING/SCALE Prescribed by: STAN GONZALEZ on 12/15/21 1538 Insulin Detemir (Levemir Flextouch) 100 Unit/Ml (3 Ml) Insuln.pen, 5 UNIT SQ BID Prescribed by: STAN GONZALEZ on 12/15/21 1538 Levothyroxine Sodium (Levothyroxine Sodium) 50 Mcg Tablet, 50 MCG PO DAILY, (Reported) Entered as Reported by: KARL CONNELLY on 12/15/21 1440 Nitrofurantoin Macrocrystal (Nitrofurantoin) 100 Mg Capsule, 100 MG PO BID Prescribed by: Raya Gómez on 06/08/22 1820 Past Ycnbbgg-Hoqlsf-Fesqhd Hx Immunizations Up To Date Influenza Vaccine Up-to-Date: No; Not Current First/Initial COVID19 Vaccinat: NA Second COVID19 Vaccination Hesham: NA Third COVID19 Vaccination Date: NA Past Medical History Surgery/Hospitalization HX: IDDM, HYPOTHRYOIDISM, ALOPECIA, TUBAL Surgeries: Yes Tubal Ligation Respiratory: No Cardiac: No Neurological: No 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 oz. kg; 22.00 BMI Method: Progress/Results/Core Measures Results/Orders Lab Results Laboratory Tests Test 06/19/22 22:06 06/19/22 22:10 06/19/22 22:16 06/19/22 22:24 Range/Units Glucometer 37 *L 192 H 70-110 MG/DL White Blood Count 6.6 4.3-11.0 10^3/uL Red Blood Count 4.40 3.80-5.11 10^6/uL Hemoglobin 13.3 11.5-16.0 g/dL Hematocrit 39 35-52 % Mean Corpuscular Volume 89 80-99 fL Mean Corpuscular Hemoglobin 30 25-34 pg Mean Corpuscular Hemoglobin Concent 34 32-36 g/dL Red Cell Distribution Width 12.6 10.0-14.5 % Platelet Count 298 130-400 10^3/uL Mean Platelet Volume 9.5 9.0-12.2 fL Immature Granulocyte % (Auto) 0 % Neutrophils (%) (Auto) 48 42-75 % Lymphocytes (%) (Auto) 41 12-44 % Monocytes (%) (Auto) 8 0-12 % Eosinophils (%) (Auto) 3 0-10 % Basophils (%) (Auto) 0 0-10 % Neutrophils # (Auto) 3.2 1.8-7.8 10^3/uL Lymphocytes # (Auto) 2.7 1.0-4.0 10^3/uL Monocytes # (Auto) 0.5 0.0-1.0 10^3/uL Eosinophils # (Auto) 0.2 0.0-0.3 10^3/uL Basophils # (Auto) 0.0 0.0-0.1 10^3/uL Immature Granulocyte # (Auto) 0.0 0.0-0.1 10^3/uL Erythrocyte Sedimentation Rate 5 0-20 MM/HR Sodium Level 143 135-145 MMOL/L Potassium Level 2.8 L 3.6-5.0 MMOL/L Chloride Level 106 98-107 MMOL/L Carbon Dioxide Level 23 21-32 MMOL/L Anion Gap 14 5-14 MMOL/L Blood Urea Nitrogen 17 7-18 MG/DL Creatinine 0.72 0.60-1.30 MG/DL Estimat Glomerular Filtration Rate 120 BUN/Creatinine Ratio 24 Glucose Level 37 *L 70-105 MG/DL Calcium Level 9.3 8.5-10.1 MG/DL Corrected Calcium 9.0 8.5-10.1 MG/DL Magnesium Level 1.8 1.6-2.4 MG/DL Total Bilirubin 0.4 0.1-1.0 MG/DL Aspartate Amino Transf (AST/SGOT) 17 5-34 U/L Alanine Aminotransferase (ALT/SGPT) 13 0-55 U/L Alkaline Phosphatase 54 40-136 U/L C-Reactive Protein High Sensitivity 0.25 0.00-0.50 MG/DL Total Protein 7.1 6.4-8.2 GM/DL Albumin 4.4 3.2-4.5 GM/DL Amylase Level 59 25-125 U/L Lipase 13 8-78 U/L Beta-Hydroxybutyrate (Chem panel) 0.08 0.00-0.27 MMOL/L TSH [place] Testing 1.52 0.35-4.94 UIU/ML Serum Test, Qualitative NEGATIVE NEGATIVE Acetaminophen Level < 10 L 10-30 UG/ML Serum Alcohol < 10 <10 MG/DL Lactic Acid Level 2.83 *H 0.50-2.00 MMOL/L Test 06/19/22 22:25 06/19/22 22:35 Range/Units Urine Color YELLOW Urine Clarity CLEAR Urine pH 6.0 5-9 Urine Specific [place] >=1.030 1.016-1.022 Urine Protein TRACE H NEGATIVE Urine Glucose (UA) 2+ H NEGATIVE Urine Ketones NEGATIVE NEGATIVE Urine Nitrite NEGATIVE NEGATIVE Urine Bilirubin NEGATIVE NEGATIVE Urine Urobilinogen 0.2 < = 1.0 MG/DL Urine Leukocyte Esterase 1+ H NEGATIVE Urine RBC (Auto) NEGATIVE NEGATIVE Urine RBC 0-2 /HPF Urine WBC 5-10 H /HPF Urine Squamous Epithelial Cells >50 H /HPF Urine Crystals PRESENT H /LPF Urine Amorphous Sediment FEW JEANNIE URATES H /LPF Urine Bacteria MODERATE H /HPF Urine Casts NONE /LPF Urine Mucus LARGE H /LPF Urine Culture Indicated NO Urine Opiates Screen NEGATIVE NEGATIVE Urine Oxycodone Screen NEGATIVE NEGATIVE Urine Methadone Screen NEGATIVE NEGATIVE Urine Propoxyphene Screen NEGATIVE NEGATIVE Urine Barbiturates Screen NEGATIVE NEGATIVE Ur Tricyclic Antidepressants Screen NEGATIVE NEGATIVE Urine Phencyclidine Screen NEGATIVE NEGATIVE Urine Amphetamines Screen NEGATIVE NEGATIVE Urine Methamphetamines Screen NEGATIVE NEGATIVE Urine Benzodiazepines Screen NEGATIVE NEGATIVE Urine Cocaine Screen NEGATIVE NEGATIVE Urine Cannabinoids Screen NEGATIVE NEGATIVE Glucometer 151 H 70-110 MG/DL My Orders Orders - BRITTANY RODRIGUEZ DO Dextrose 10% Iv Solution (D10w 250 Ml Iv (06/19/22 22:15) Accucheck Stat ONCE (06/19/22 22:07) Ed Iv/Invasive Line Start (06/19/22 22:07) Monitor-Rhythm Ecg Trace Only (06/19/22 22:07) Acetaminophen (06/19/22 22:07) Alcohol (06/19/22 22:07) Amylase (06/19/22 22:07) Cbc With Automated Diff (06/19/22 22:07) Comprehensive Metabolic Panel (06/19/22 22:07) Hs C Reactive Protein (06/19/22 22:07) Drug Screen Stat (Urine) (06/19/22 22:07) Hcg,Qualitative Serum (06/19/22 22:07) Lactic Acid Analyzer (06/19/22 22:07) Lipase (06/19/22 22:07) Magnesium (06/19/22 22:07) Thyroid Analyzer (06/19/22 22:07) Ua Culture If Indicated (06/19/22 22:07) Erythrocyte Sedimentation Rate (06/19/22 22:07) Ed Iv/Invasive Line Start (06/19/22 22:07) D5 1/2 Ns 1000 Ml Iv Solution (Dextrose (06/19/22 22:15) D50w (Emergency) Syringe (Dextrose 50% 5 (06/19/22 22:07) Dextrose 10% Iv Solution (D10w 250 Ml Iv (06/19/22 22:08) Accucheck Stat ONCE (06/19/22 22:38) Beta Hydroxybutyrate (06/19/22 22:53) Hemoglobin A1c (06/19/22 22:53) Ceftriaxone 1 Gm Pre-Mix (Rocephin 1 Gm (06/19/22 23:35) Potassium Chloride (Tablet) (Klor Con Ta (06/19/22 23:45) Medications Given in ED Current Medications Medications Dose Ordered Sig/[place]en Route Start Time Stop Time Status Last Admin Dose Admin Dextrose/Sodium Chloride 1,000 ml @ 0 mls/hr ONCE ONCE IV 06/19/22 22:15 06/19/22 22:16 DC 06/19/22 22:38 0 MLS/HR Vital Signs/I&O 06/19/22 22:00 Temp 36.0 Pulse 88 Resp 16 B/P (MAP) 109/67 (81) Blood Pressure Mean: 81 FSBG Bedside Testing Finger Stick Blood Glucose: 37 Blood Glucose Action Taken: d10 Progress Progress Note : Progress Note ACCUCHECK IS 37 ON ARRIVAL GIVEN 250 ML OF D10 REPEAT ACCUCHECK IS 157 REVIEWED PREVIOUS RECORDS--8 VISITS SINCE HER FIRST VISIT HERE 10/22/21, ALL ER VISITS, EXCEPT FOR 1 ADMIT FOR DKA PT WAS MOST RECENTLY SEEN 06/08/22 FOR C/O ABD PAIN AND DX WITH UTI, GIVEN RX FOR MACROBID X 5 DAYS. URINE CULTURE GREW OUT > 3 ISOLATES, SUSPECTED CONTAMINATION, NO SENSITIVITY DONE. SHE WAS ALSO SEEN 05/24/22 FOR THUMB ABSCESS SHE WAS ALSO SEEN 05/16/22 FOR ABDOMINAL PAIN AT DISMISSAL, PT NOW STATES SHE HAS A CGM, BUT "LOST PART OF IT" AND HAS NOT ATTEMPTED TO GET A NEW ONE, AND HAS NOT BEEN CHECKING HER BLOOD SUGARS WITH REGULAR GLUCOSE MONITOR Departure Impression Primary Impression: Hypoglycemia Additional Impressions: Uncontrolled type 1 diabetes mellitus UTI (urinary tract infection) Hypokalemia Disposition: HOME, SELF-CARE Condition: Improved Departure-Patient Inst. Decision time for Depature: 23:34 Referrals: [facility] (PCP/Family) Primary Care Physician Patient Instructions: Low Blood Sugar, Adult ED, Urinary Tract Infection, Adult ED, Blood Glucose Monitoring, Carb Counting for Adults With Diabetes, Hypokalemia (DC) Add. Discharge Instructions: CHECK YOUR BLOOD SUGAR AT LEAST 4 TIMES A DAY--BEFORE EACH MEAL AND AT BEDTIME TAKE YOUR INSULIN PRESCRIBED HIGH PROTEIN, LOW CARB DIET FOLLOW UP WITH [facility] IN THE NEXT FEW DAYS FOR FURTHER CARE RETURN TO ER IF SYMPTOMS WORSEN All discharge instructions reviewed with patient and/or family. Voiced understanding. Scripts Cefdinir (Cefdinir) 300 Mg Capsule 300 MG PO BID, #20 CAP Prov: BRITTANY RODRIGUEZ DO 06/19/22 BRITTANY RODRIGUEZ DO Jun 19, 2022 22:38
[2022-06-19 22:42] LABS: AMORPHOUS SEDIMENT,UR FEW AMOR URATES /LPF; BACTERIA,URINE MODERATE /HPF; RBC,URINE 0-2 /HPF; SQUAMOUS EPITHELIAL CELL,UR >50 /HPF
[2022-06-19 22:48] LABS: AMPHETAMINE SCREEN, URINE NEGATIVE (NEGATIVE); BARBITURATE SCREEN URINE NEGATIVE (NEGATIVE); BENZODIAZEPINES SCREEN URINE NEGATIVE (NEGATIVE); CANNABINOID SCREEN, URINE NEGATIVE (NEGATIVE); COCAINE SCREEN URINE NEGATIVE (NEGATIVE); METHADONE STAT NEGATIVE (NEGATIVE); OPIATE SCREEN URINE NEGATIVE (NEGATIVE); OXYCODONE STAT NEGATIVE (NEGATIVE); PROPOXYPHENE STAT NEGATIVE (NEGATIVE); TRICYCLIC ANTIDEPRESSANTS SCRE NEGATIVE (NEGATIVE)
[2022-06-19 22:55] LABS: ALBUMIN 4.4 GM/DL (3.2-4.5); CHLORIDE 106 MMOL/L (98-107); POTASSIUM 2.8 MMOL/L (3.6-5.0); SODIUM 143 MMOL/L (135-145)
[2022-06-19 22:56] LABS: CALCIUM 9.3 MG/DL (8.5-10.1)
[2022-06-19 22:57] LABS: AMYLASE 59 U/L (25-125)
[2022-06-19 22:58] LABS: TOTAL PROTEIN 7.1 GM/DL (6.4-8.2)
[2022-06-19 22:59] LABS: BILIRUBIN,TOTAL 0.4 MG/DL (0.1-1.0); CARBON DIOXIDE 23 MMOL/L (21-32)
[2022-06-19 23:01] LABS: ALKALINE PHOSPHATASE 54 U/L (40-136)
[2022-06-19 23:02] LABS: CREATININE SERUM 0.72 MG/DL (0.60-1.30); GFR ESTIMATED 120
[2022-06-19 23:03] LABS: BUN/CREATININE RATIO 24
[2022-06-19 23:04] LABS: ACETAMINOPHEN < 10 UG/ML (10-30); ALANINE AMINOTRANSFERASE 13 U/L (0-55); GLUCOSE 37 MG/DL (70-105)
[2022-06-19 23:05] LABS: MAGNESIUM 1.8 MG/DL (1.6-2.4)
[2022-06-19 23:06] LABS: LIPASE 13 U/L (8-78)
[2022-06-19 23:09] LABS: ERYTHROCYTE SEDIMENTATION RATE 5 MM/HR (0-20)
[2022-06-19 23:26] LABS: TSH (THYROID ANALYZER) 1.52 UIU/ML (0.35-4.94)
[2022-06-19] MEDS ORDERED: cefTRIAXone 1 GM PRE-MIX 50 ML IV STA (23:35)
[2022-06-19] MEDS ORDERED: KCL 10 MEQ TAB (MICRO K) PO ONE (23:45)
[2022-06-19] MEDS ORDERED: CEFD300C3 PO (23:47)
== END 2022-06-20 00:10 | disposition home or self-care (01) ==
LOC: EDUNIT# 21:57 → ER 21:58
DX: E10.649 Type 1 diabetes mellitus with hypoglycemia without coma (principal); N39.0 Urinary tract infection, site not specified; E87.6 Hypokalemia; Z28.310 Unvaccinated for COVID-19; Z88.0 Allergy status to penicillin; Z88.2 Allergy status to sulfonamides
CPT/HCPCS: 36415; 80053; 80306; 80320; 80329; 81000; 82010; 82150; 82947; 83036; 83605; 83690; 83735; 84443; 84703; 85025; 85652; 86141; 93041; 96374

== ENCOUNTER 2022-07-14 17:00 | Emergency (ER) | payer MEDICAID ==
[~2022-07-14] VITALS: Ht 160 cm; Wt 57.2 kg
[~2022-07-14 17:00] MED LIST changes: +CEFD300C3 PO
[2022-07-14] MEDS ORDERED: NS IV 1000 ML 1,000 ML IV SCH (17:45)
[2022-07-14 17:51] LABS: BASOPHILS % (AUTO) 0 % (0-10); EOSINOPHILS # (AUTO) 0.1 10^3/uL (0.0-0.3); EOSINOPHILS % (AUTO) 2 % (0-10); HEMATOCRIT 39 % (35-52); HEMOGLOBIN 13.2 g/dL (11.5-16.0); LYMPHOCYTES # (AUTO) 1.2 10^3/uL (1.0-4.0); LYMPHOCYTES % (AUTO) 20 % (12-44); MEAN CORPUSCULAR HEMOGLOBIN 30 pg (25-34); MEAN CORPUSCULAR HGB CONC 34 g/dL (32-36); MEAN CORPUSCULAR VOLUME 89 fL (80-99); MEAN PLATELET VOLUME 10.1 fL (9.0-12.2); MONOCYTES # (AUTO) 0.3 10^3/uL (0.0-1.0); MONOCYTES % (AUTO) 6 % (0-12); NEUTROPHILS # (AUTO) 4.2 10^3/uL (1.8-7.8); NEUTROPHILS % (AUTO) 72 % (42-75); PLATELET COUNT 239 10^3/uL (130-400); WHITE BLOOD COUNT 5.8 10^3/uL (4.3-11.0)
[2022-07-14 17:53] LABS: BILIRUBIN,URINE NEGATIVE (NEGATIVE); CLARITY,URINE CLEAR; COLOR,URINE YELLOW; GLUCOSE, URINE (UA) 3+ (NEGATIVE); KETONES,URINE 2+ (NEGATIVE); LEUKOCYTE ESTERASE ,URINE NEGATIVE (NEGATIVE); NITRITE,URINE NEGATIVE (NEGATIVE); PROTEIN,URINE NEGATIVE (NEGATIVE)
[2022-07-14 18:09] LABS: ALBUMIN 4.4 GM/DL (3.2-4.5); POTASSIUM 4.5 MMOL/L (3.6-5.0)
[2022-07-14 18:10] LABS: CALCIUM 9.3 MG/DL (8.5-10.1)
[2022-07-14 18:13] LABS: BILIRUBIN,TOTAL 0.7 MG/DL (0.1-1.0)
[2022-07-14 18:15] LABS: CREATININE SERUM 0.86 MG/DL (0.60-1.30)
[2022-07-14 18:30] LABS: BACTERIA,URINE TRACE /HPF
--- NOTE | 2022-07-14 18:36 | ED General ---
General Chief Complaint: Glucose Problems Stated Complaint: HIGH BLOOD SUGAR Nursing Triage Note: PT AMB TO TRIAGE WITH COMPLAINT OF HIGH BLOOD SUGARS. STATES SHE FOUND OUT TODAY THAT SHE LOST HER PROVIDER, AND IS OUT OF HER INSULIN AND CONTINUOUS BLOOD GLUCOSE MONITOR SUPPLIES. Source of Information: Patient Exam Limitations: No Limitations History of Present Illness Date Seen by Provider: Jul 14, 2022 Time Seen by Provider: 17:19 Initial Comments This 26-year-old young lady with type 1 diabetes presents to the emergency room with high blood sugars. She reports being dismissed by her data coder operator Dr. Seymour in [place] for not attending her visits. She is now out of her short acting insulin. She still has her Levemir but forgot to take it this morning. She has had polydipsia and polyuria associated with high blood sugars. Her Dexcom is currently not working and she does not have test strips at home. She usually takes Levemir 10 units twice daily and about 40 units of short acting insulin divided over 3-4 doses. Her primary care is provided by Edna at [facility]. She has not contacted [facility] regarding her need for insulin supplies and prescriptions. She denies being sick in any other way except for nausea associated with her hyperglycemia. Allergies and Home Medications Allergies Coded Allergies: sulfamethoxazole (Verified Allergy, Mild, Rash, 05/24/22) trimethoprim (Verified Allergy, Mild, Rash, 05/24/22) amoxicillin (Verified Adverse Reaction, Unknown, Vomiting, 05/24/22) Patient Home Medication List Home Medication List Reviewed: Yes Blood Sugar Diagnostic (Test Strips) 1 Each Strip, 1 EACH MC QID Prescribed by: ELIZABETH CARVAJAL on 07/14/22 184 Cefdinir (Cefdinir) 300 Mg Capsule, 300 MG PO BID Prescribed by: BRITTANY RODRIGUEZ on 06/19/22 2347 Cephalexin (Cephalexin) 500 Mg Tablet, 500 MG PO QID Prescribed by: ELIZABETH CARVAJAL on 05/24/22 021 Doxycycline Hyclate (Doxycycline Hyclate) 100 Mg Tablet, 100 MG PO BID Prescribed by: ELIZABETH CARVAJAL on 05/24/22 021 Fluticasone Propionate (Fluticasone Propionate) 50 Mcg/Actuation [place].susp, (Reported) Entered as Reported by: ANGY HODGES on 05/24/22 0033 Insulin Aspart (Insulin Aspart Flexpen) 100 Unit/Ml (3 Ml) Insuln.pen, 1 UNITS SC SLIDING/SCALE Prescribed by: STAN GONZALEZ on 12/15/21 1538 Insulin Aspart (Insulin Aspart Flexpen) 100 Unit/Ml (3 Ml) Insuln.pen, 10 UNIT SQ TIDAC Prescribed by: ELIZABETH CARVAJAL on 07/14/22 1840 Insulin Detemir (Levemir Flextouch) 100 Unit/Ml (3 Ml) Insuln.pen, 5 UNIT SQ BID Prescribed by: STAN GONZALEZ on 12/15/21 1538 Levothyroxine Sodium (Levothyroxine Sodium) 50 Mcg Tablet, 50 MCG PO DAILY, (Reported) Entered as Reported by: KARL CONNELLY on 12/15/21 1440 Nitrofurantoin Macrocrystal (Nitrofurantoin) 100 Mg Capsule, 100 MG PO BID Prescribed by: Raya Gómez on 06/08/22 182 Review of Systems Review of Systems Constitutional: no symptoms reported EENTM: no symptoms reported Respiratory: no symptoms reported Cardiovascular: no symptoms reported Gastrointestinal: see HPI Genitourinary: see HPI : No LMP: Jul 07, 2022 Musculoskeletal: no symptoms reported Skin: other (Patchy alopecia) Psychiatric/Neurological: No Symptoms Reported Hematologic/Lymphatic: No Symptoms Reported Past Dycsmtz-Xlpwpc-Kkeuic Hx Patient Social History Tobacco Use?: No Use of E-Cig and/or Vaping dev: No Substance use?: No Alcohol Use?: No Pt feels they are or have been: No Immunizations Up To Date First/Initial COVID19 Vaccinat: NA Second COVID19 Vaccination Hesham: NA Third COVID19 Vaccination Date: NA Past Medical History Surgery/Hospitalization HX: IDDM, HYPOTHRYOIDISM, ALOPECIA, TUBAL Surgeries: Yes Tubal Ligation Respiratory: No Cardiac: No Neurological: Yes Headaches /Migraines Reproductive Disorders: No Female Reproductive Disorders: 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 oz. kg; 22.00 BMI Method: General Appearance: No Apparent Distress, Thin HEENT: PERRL/EOMI, Normal ENT Inspection, Other (MM somewhat dry) Neck: Normal Inspection Respiratory: Lungs Clear, Normal Breath Sounds, No Accessory Muscle Use Cardiovascular: Regular Rate, Rhythm, No Edema, No Murmur Gastrointestinal: Non Tender, Soft; No Distended Extremity: Normal Inspection, No Pedal Edema Neurologic/Psychiatric: Alert, Oriented x3, Normal Mood/Affect Skin: Normal Color, Warm/Dry Progress/Results/Core Measures Suspected Sepsis SIRS Temperature: Pulse: 92 Respiratory Rate: 16 Laboratory Tests 07/14/22 17:34: White Blood Count 5.8 Blood Pressure 127 /92 Mean: 104 Laboratory Tests 07/14/22 17:34: Creatinine 0.86, Platelet Count 239, Total Bilirubin 0.7 Results/Orders Lab Results Laboratory Tests Test 07/14/22 17:17 07/14/22 17:34 07/14/22 17:45 07/14/22 18:54 Range/Units Glucometer 453 *H 408 *H 70-110 MG/DL White Blood Count 5.8 4.3-11.0 10^3/uL Red Blood Count 4.42 3.80-5.11 10^6/uL Hemoglobin 13.2 11.5-16.0 g/dL Hematocrit 39 35-52 % Mean Corpuscular Volume 89 80-99 fL Mean Corpuscular Hemoglobin 30 25-34 pg Mean Corpuscular Hemoglobin Concent 34 32-36 g/dL Red Cell Distribution Width 12.1 10.0-14.5 % Platelet Count 239 130-400 10^3/uL Mean Platelet Volume 10.1 9.0-12.2 fL Immature Granulocyte % (Auto) 0 % Neutrophils (%) (Auto) 72 42-75 % Lymphocytes (%) (Auto) 20 12-44 % Monocytes (%) (Auto) 6 0-12 % Eosinophils (%) (Auto) 2 0-10 % Basophils (%) (Auto) 0 0-10 % Neutrophils # (Auto) 4.2 1.8-7.8 10^3/uL Lymphocytes # (Auto) 1.2 1.0-4.0 10^3/uL Monocytes # (Auto) 0.3 0.0-1.0 10^3/uL Eosinophils # (Auto) 0.1 0.0-0.3 10^3/uL Basophils # (Auto) 0.0 0.0-0.1 10^3/uL Immature Granulocyte # (Auto) 0.0 0.0-0.1 10^3/uL Sodium Level 136 135-145 MMOL/L Potassium Level 4.5 3.6-5.0 MMOL/L Chloride Level 99 98-107 MMOL/L Carbon Dioxide Level 25 21-32 MMOL/L Anion Gap 12 5-14 MMOL/L Blood Urea Nitrogen 15 7-18 MG/DL Creatinine 0.86 0.60-1.30 MG/DL Estimat Glomerular Filtration Rate 97 BUN/Creatinine Ratio 17 Glucose Level 535 *H 70-105 MG/DL Calcium Level 9.3 8.5-10.1 MG/DL Corrected Calcium 9.0 8.5-10.1 MG/DL Total Bilirubin 0.7 0.1-1.0 MG/DL Aspartate Amino Transf (AST/SGOT) 13 5-34 U/L Alanine Aminotransferase (ALT/SGPT) 14 0-55 U/L Alkaline Phosphatase 59 40-136 U/L C-Reactive Protein High Sensitivity 0.20 0.00-0.50 MG/DL Total Protein 7.0 6.4-8.2 GM/DL Albumin 4.4 3.2-4.5 GM/DL Urine Color YELLOW Urine Clarity CLEAR Urine pH 6.0 5-9 Urine Specific [place] 1.015 L 1.016-1.022 Urine Protein NEGATIVE NEGATIVE Urine Glucose (UA) 3+ H NEGATIVE Urine Ketones 2+ H NEGATIVE Urine Nitrite NEGATIVE NEGATIVE Urine Bilirubin NEGATIVE NEGATIVE Urine Urobilinogen 0.2 < = 1.0 MG/DL Urine Leukocyte Esterase NEGATIVE NEGATIVE Urine RBC (Auto) NEGATIVE NEGATIVE Urine RBC 2-5 H /HPF Urine WBC 2-5 /HPF Urine Squamous Epithelial Cells 5-10 /HPF Urine Crystals NONE /LPF Urine Bacteria TRACE /HPF Urine Casts NONE /LPF Urine Mucus NEGATIVE /LPF Urine Culture Indicated NO Test 07/14/22 20:05 Range/Units Glucometer 356 H 70-110 MG/DL My Orders Orders - BRUEGGEMANN,ELIZABETH T MD Accucheck Stat ONCE (07/14/22 18:34) Accucheck Stat ONCE (07/14/22 18:34) Lactated Ringers (Lr 1000 Ml Iv Solution (07/14/22 18:45) Insulin (Regular) Human (Novolin R (Per (07/14/22 18:45) Medications Given in ED Vital Signs/I&O 07/14/22 07/14/22 17:12 20:14 Pulse 92 92 Resp 16 16 B/P (MAP) 127/92 (104) 121/77 Pulse Ox 98 98 O2 Delivery Room Air Room Air Capillary Refill : Less Than 3 Seconds Blood Pressure Mean: 104 Point of Care Testing Finger Stick Blood Glucose: 453 Blood Glucose Action Taken: PHYSCIAN NOTIFIED Progress Note : Progress Note Labs were reviewed in their entirety including CBC, CMP, UA, and finger stick blood sugar. Hyperglycemia was noted and treated with regular insulin 5 units SQ and 2 liters of IVF. Blood sugars trended down appropriately. She was discharged home with Rx and discharge instructions were reviewed. . Departure Impression Primary Impression: Hyperglycemia Additional Impressions: Type 1 diabetes mellitus Qualified Codes: E10.65 - Type 1 diabetes mellitus with hyperglycemia Noncompliance Disposition: HOME, SELF-CARE Condition: Improved Departure-Patient Inst. Decision time for Depature: 18:37 Referrals: NO,LOCAL PHYSICIAN (PCP/Family) Primary Care Physician Patient Instructions: Diabetes Type 1, Adult (DC) Add. Discharge Instructions: Contact the [facility] tomorrow to get assistance with covering you r medications until you are able to establish with a new data coder operator. It is very important that you are strictly compliant with your medications. Please continue taking your Levemir and take your evening dose when you get home. Drink plenty of clear liquids and eat a well-balanced diet. Return to care if you have worsening symptoms despite following these instructions. Check your blood sugars fasting in the morning and 2 hours after each meal. Make an appointment with [facility] as soon as possible and bring a log of your blood sugars to that appointment. All discharge instructions reviewed with patient and/or family. Voiced underst anding. Scripts Insulin Aspart (Insulin Aspart Flexpen) 100 Unit/Ml (3 Ml) Insuln.pen 10 UNIT SQ TIDAC, #3 EA Follow carb couting and sliding scale correction per data coder operator. Prov: ELIZABETH MARIE MD 07/14/22 Blood Sugar Diagnostic (Test Strips) 1 Each Strip 1 EACH QID, #120 STRIP Prov: ELIZABETH MARIE MD 07/14/22 Copy Copies To 1: [facility]/ELIZABETH SAWYER MD Jul 14, 2022 18:36
[2022-07-14] MEDS ORDERED: INSU100I55 SQ (18:40)
[2022-07-14] MEDS ORDERED: BLOO-1482 MC (18:40)
[2022-07-14] MEDS ORDERED: inSUlin (REGULAR) HUMAN 1 UNIT/0.01 ML (CHARGE PER UNIT) SC ONE (18:45)
[2022-07-14] MEDS ORDERED: LACTATED RINGERS 1,000 ML IV ONE (18:45)
[2022-07-14 20:14] VITALS: BP 121/77
== END 2022-07-14 20:14 | disposition home or self-care (01) ==
LOC: EDUNIT# 17:00 → ER 17:01
DX: E10.65 Type 1 diabetes mellitus with hyperglycemia (principal); Z91.199 Patient's noncompliance with other medical treatment and regimen due to unspecified reason
CPT/HCPCS: 36415; 80053; 81000; 82947; 84703; 85025; 86141

== ENCOUNTER 2022-07-29 21:53 | Emergency (ER) | payer MEDICAID ==
[~2022-07-29] VITALS: Ht 160 cm; Wt 55.8 kg
[~2022-07-29 21:53] MED LIST changes: +BLOO-1482 MC; +INSU100I55 SQ
[2022-07-29] MEDS ORDERED: KETOROLAC 30 MG/ML VIAL IVP STA (22:00)
[2022-07-29] MEDS ORDERED: diphenhydrAMINE 50 MG/ML INJ (BENADRYL) IVP ONE (22:00)
[2022-07-29] MEDS ORDERED: LACTATED RINGERS 1,000 ML IV ONE (22:00)
[2022-07-29] MEDS ORDERED: PROMETHAZINE INJ 25 MG/ML (PHENERGAN) AMP IVP STA (22:00)
[2022-07-29] MEDS ORDERED: KETOROLAC 30 MG/ML VIAL ONE (22:02)
[2022-07-29] MEDS ORDERED: PROMETHAZINE INJ 25 MG/ML (PHENERGAN) AMP ONE (22:02)
[2022-07-29] MEDS ORDERED: diphenhydrAMINE 50 MG/ML INJ (BENADRYL) ONE (22:02)
[2022-07-29 22:08] LABS: BASOPHILS % (AUTO) 0 % (0-10); EOSINOPHILS # (AUTO) 0.2 10^3/uL (0.0-0.3); EOSINOPHILS % (AUTO) 2 % (0-10); HEMATOCRIT 39 % (35-52); HEMOGLOBIN 13.9 g/dL (11.5-16.0); LYMPHOCYTES # (AUTO) 4.1 10^3/uL (1.0-4.0); LYMPHOCYTES % (AUTO) 38 % (12-44); MEAN CORPUSCULAR HEMOGLOBIN 30 pg (25-34); MEAN CORPUSCULAR HGB CONC 36 g/dL (32-36); MEAN CORPUSCULAR VOLUME 85 fL (80-99); MONOCYTES # (AUTO) 0.8 10^3/uL (0.0-1.0); MONOCYTES % (AUTO) 7 % (0-12); NEUTROPHILS # (AUTO) 5.6 10^3/uL (1.8-7.8); NEUTROPHILS % (AUTO) 52 % (42-75); PLATELET COUNT 292 10^3/uL (130-400); WHITE BLOOD COUNT 10.8 10^3/uL (4.3-11.0)
[2022-07-29 22:22] LABS: ALBUMIN 4.9 GM/DL (3.2-4.5)
[2022-07-29 22:23] LABS: AMYLASE 54 U/L (25-125); CHLORIDE 106 MMOL/L (98-107); POTASSIUM 3.8 MMOL/L (3.6-5.0); SODIUM 138 MMOL/L (135-145)
[2022-07-29 22:24] LABS: CALCIUM 10.3 MG/DL (8.5-10.1)
[2022-07-29 22:25] LABS: GLUCOSE 299 MG/DL (70-105); TOTAL PROTEIN 7.8 GM/DL (6.4-8.2)
[2022-07-29 22:26] LABS: CARBON DIOXIDE 14 MMOL/L (21-32)
[2022-07-29 22:27] LABS: BILIRUBIN,TOTAL 0.4 MG/DL (0.1-1.0)
[2022-07-29 22:28] LABS: ALKALINE PHOSPHATASE 74 U/L (40-136)
[2022-07-29 22:29] LABS: CREATININE SERUM 1.02 MG/DL (0.60-1.30); GFR ESTIMATED 79
[2022-07-29 22:30] LABS: BUN/CREATININE RATIO 21
[2022-07-29] MEDS ORDERED: NS IV 1000 ML 1,000 ML IV SCH (22:30)
[2022-07-29 22:32] LABS: ALANINE AMINOTRANSFERASE 15 U/L (0-55); LIPASE 22 U/L (8-78)
--- NOTE | 2022-07-29 22:37 | ED Abdominal Pain ---
General Chief Complaint: Back Problems Stated Complaint: LOW BACK PAIN Nursing Triage Note: PT TO ED BY EMS FROM WORK AT [employer] WITH C/O R LOWER BACK PAIN BEGINNING 30 MINUTES AGO. PT HYPERVENTILATING AND SCREAMING UPON ARRIVAL. PT REPORTS SUDDEN ONSET SEVERE R LOWER BACK PAIN. PT REPORTS PAIN FEELS SIMILAR TO LABOR CONTRACTIONS. PT REPORT SHE HAS AN R OVARIAN CYST, AND IS SCHEDULED FOR SURGERY ON August. Source of Information: Patient, EMS, Old Records History of Present Illness Date Seen by Provider: Jul 29, 2022 Time Seen by Provider: 22:00 Initial Comments PT ARRIVES VIA EMS FROM [facility] PT C/O SEVERE RIGHT FLANK PAIN AND RLQ PAIN--PAIN IS WORST IN RIGHT FLANK SHE WAS DX WITH 6.8 X 3.2 CM RIGHT OVARIAN CYST, ALONG WITH A PUNCTATE NON- OBSTRUCTING RIGHT RENAL CALCULI ON ER VISIT 04/13/23 SHE STATES SHE IS SUPPOSED TO HAVE THE CYST REMOVED AT [facility] IN AUGUST. SHE STATES "IT'S GOTTEN BIGGER SINCE I WAS HERE" --SHE DOES NOT KNOW HOW BIG IT IS NOW. SHE DOES NOT KNOW NAME OF SURGEON. SHE WAS AT [facility] TODAY, TO SCHEDULE THE SURGERY. SHE HAS BEEN HAVING PAIN IN RLQ FOR MONTHS, AND SHE TOOK IBUPROFEN AN HOUR AGO, THEN PAIN BECAME SEVERE 30 MINUTES PRIOR TO ARRIVAL PT IS DRY HEAVING AND SCREAMING, WAILING AND IS COMPLETELY HYSTERICAL ON ARRIVAL BY EMS PT IS TYPE 1 DIABETIC, SHE HAS NOT CHECKED HER BLOOD SUGAR TODAY SHE ATE A CHEESEBURGER AT 2000 TONIGHT. SHE NEVER CHECKS HER BLOOD SUGAR AND DOES NOT FOLLOW ANY DIET PT HAS HAD A MULTITUDE OF VISITS HERE FOR VARIOUS COMPLAINTS--10 VISITS, SINCE HER FIRST VISIT HERE 10/2021. 6 VISITS HERE SINCE 05/16/22 FOR VARIOUS COMPLAINTS LAST VISIT HERE 07/14/22 FOR HYPERGLYCEMIA/UNCONTROLLED DIABETES LMP 07/16/22. NORMAL. S/P BTL PT IS NOT COVID OR FLU VACCINATED PCP: [facility] Allergies and Home Medications Allergies Coded Allergies: sulfamethoxazole (Verified Allergy, Mild, Rash, 05/24/22) trimethoprim (Verified Allergy, Mild, Rash, 05/24/22) amoxicillin (Verified Adverse Reaction, Unknown, Vomiting, 05/24/22) Patient Home Medication List Blood Sugar Diagnostic (Test Strips) 1 Each Strip, 1 EACH MC QID Prescribed by: ELIZABETH CARVAJAL on 07/14/22 184 Cefdinir (Cefdinir) 300 Mg Capsule, 300 MG PO BID Prescribed by: BRITTANY RODRIGUEZ on 06/19/22 234 Cephalexin (Cephalexin) 500 Mg Tablet, 500 MG PO QID Prescribed by: ELIZABETH CARVAJAL on 05/24/22210 Doxycycline Hyclate (Doxycycline Hyclate) 100 Mg Tablet, 100 MG PO BID Prescribed by: ELIZABETH CARVAJAL on 05/24/22210 Fluticasone Propionate (Fluticasone Propionate) 50 Mcg/Actuation [place].susp, (Reported) Entered as Reported by: ANGY HODGES on 05/24/22 003 Insulin Aspart (Insulin Aspart Flexpen) 100 Unit/Ml (3 Ml) Insuln.pen, 1 UNITS SC SLIDING/SCALE Prescribed by: STAN GONZALEZ on 12/15/21 153 Insulin Aspart (Insulin Aspart Flexpen) 100 Unit/Ml (3 Ml) Insuln.pen, 10 UNIT SQ TIDAC Prescribed by: ELIZABETH CARVAJAL on 07/14/22 184 Insulin Detemir (Levemir Flextouch) 100 Unit/Ml (3 Ml) Insuln.pen, 5 UNIT SQ BID Prescribed by: STAN GONZALEZ on 12/15/21 153 Levothyroxine Sodium (Levothyroxine Sodium) 50 Mcg Tablet, 50 MCG PO DAILY, (Reported) Entered as Reported by: KARL CONNELLY on 12/15/21 1440 Nitrofurantoin Macrocrystal (Nitrofurantoin) 100 Mg Capsule, 100 MG PO BID Prescribed by: Raya Gómez on 06/08/22 182 Review of Systems Review of Systems Constitutional: no symptoms reported Respiratory: No Symptoms Reported Cardiovascular: No Symptoms Reported Gastrointestinal: See HPI, Abdominal Pain; Denies Diarrhea; Nausea, Other (DRY HEAVES) Genitourinary: No Symptoms Reported Musculoskeletal: see HPI, back pain Skin: no symptoms reported Psychiatric/Neurological: No Symptoms Reported Endocrine: No Symptoms Reported Past Csonava-Kycfir-Cywwyp Hx Patient Social History Tobacco Use?: No Use of E-Cig and/or Vaping dev: No Substance use?: No Alcohol Use?: No Pt feels they are or have been: No Immunizations Up To Date Influenza Vaccine Up-to-Date: No; Not Current First/Initial COVID19 Vaccinat: NA Second COVID19 Vaccination Hesham: NA Third COVID19 Vaccination Date: NA Past Medical History Surgery/Hospitalization HX: IDDM, HYPOTHRYOIDISM, ALOPECIA, TUBAL Surgeries: Yes Tubal Ligation Respiratory: No Cardiac: No Neurological: Yes Headaches /Migraines : No Last Menstrual Period: Jul 16, 2022 Reproductive Disorders: Yes (RIGHT OVARIAN CYST) Female Reproductive Disorders: Ovarian Cyst [employer] History: Tubal Ligation Genitourinary: No Gastrointestinal: No Musculoskeletal: No Endocrine: Yes (TYPE 1 DIABETES, DX AT 14 MONTHS OF AGE) Diabetes, Insulin dep, Hypothyroidsim Cancer: No Psychosocial: No Integumentary: Yes (ALOPECIA) Blood Disorders: No Family Medical History No Pertinent Family Hx Physical Exam Vital Signs Vital Signs - First Documented 07/29/22 21:56 Temp 37.2 Pulse 162 Resp 42 B/P (MAP) 157/90 (112) Pulse Ox 98 O2 Delivery Room Air Capillary Refill : Less Than 3 Seconds Height/Weight/BMI Height: '" Weight: lbs. oz. 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, no motor/sensory deficits, alert, oriented x 3 Skin: normal color, warm/dry, tattoos/piercings (TATTOOS), other (HAIR VERY SHORT, WITH MULTIPLE LARGE AREAS OF ALOPECIA TO SCALP) Progress/Results/Core Measures Results/Orders Lab Results Laboratory Tests Test 07/29/22 22:00 07/29/22 22:47 07/29/22 23:35 Range/Units White Blood Count 10.8 4.3-11.0 10^3/uL Red Blood Count 4.59 3.80-5.11 10^6/uL Hemoglobin 13.9 11.5-16.0 g/dL Hematocrit 39 35-52 % Mean Corpuscular Volume 85 80-99 fL Mean Corpuscular Hemoglobin 30 25-34 pg Mean Corpuscular Hemoglobin Concent 36 32-36 g/dL Red Cell Distribution Width 11.9 10.0-14.5 % Platelet Count 292 130-400 10^3/uL Mean Platelet Volume 10.0 9.0-12.2 fL Immature Granulocyte % (Auto) 0 % Neutrophils (%) (Auto) 52 42-75 % Lymphocytes (%) (Auto) 38 12-44 % Monocytes (%) (Auto) 7 0-12 % Eosinophils (%) (Auto) 2 0-10 % Basophils (%) (Auto) 0 0-10 % Neutrophils # (Auto) 5.6 1.8-7.8 10^3/uL Lymphocytes # (Auto) 4.1 H 1.0-4.0 10^3/uL Monocytes # (Auto) 0.8 0.0-1.0 10^3/uL Eosinophils # (Auto) 0.2 0.0-0.3 10^3/uL Basophils # (Auto) 0.0 0.0-0.1 10^3/uL Immature Granulocyte # (Auto) 0.0 0.0-0.1 10^3/uL Sodium Level 138 135-145 MMOL/L Potassium Level 3.8 3.6-5.0 MMOL/L Chloride Level 106 98-107 MMOL/L Carbon Dioxide Level 14 L 21-32 MMOL/L Anion Gap 18 H 5-14 MMOL/L Blood Urea Nitrogen 21 H 7-18 MG/DL Creatinine 1.02 0.60-1.30 MG/DL Estimat Glomerular Filtration Rate 79 BUN/Creatinine Ratio 21 Glucose Level 299 H 70-105 MG/DL Calcium Level 10.3 H 8.5-10.1 MG/DL Corrected Calcium 8.5-10.1 MG/DL Total Bilirubin 0.4 0.1-1.0 MG/DL Aspartate Amino Transf (AST/SGOT) 12 5-34 U/L Alanine Aminotransferase (ALT/SGPT) 15 0-55 U/L Alkaline Phosphatase 74 40-136 U/L Total Protein 7.8 6.4-8.2 GM/DL Albumin 4.9 H 3.2-4.5 GM/DL Amylase Level 54 25-125 U/L Lipase 22 8-78 U/L Beta-Hydroxybutyrate (Chem panel) 0.33 H 0.00-0.27 MMOL/L Serum Test, Qualitative NEGATIVE NEGATIVE Acetaminophen Level < 10 L 10-30 UG/ML Serum Alcohol < 10 <10 MG/DL Influenza Type A (RT-PCR) Not Detected Not Detecte Influenza Type B (RT-PCR) Not Detected Not Detecte SARS-CoV-2 RNA (RT-PCR) Not Detected Not Detecte Urine Color YELLOW Urine Clarity SL CLOUDY Urine pH 5.5 5-9 Urine Specific [place] 1.015 L 1.016-1.022 Urine Protein NEGATIVE NEGATIVE Urine Glucose (UA) 3+ H NEGATIVE Urine Ketones TRACE H NEGATIVE Urine Nitrite NEGATIVE NEGATIVE Urine Bilirubin NEGATIVE NEGATIVE Urine Urobilinogen 0.2 < = 1.0 MG/DL Urine Leukocyte Esterase TRACE H NEGATIVE Urine RBC (Auto) TRACE-I H NEGATIVE Urine RBC 0-2 /HPF Urine WBC 0-2 /HPF Urine Squamous Epithelial Cells 2-5 /HPF Urine Crystals NONE /LPF Urine Bacteria TRACE /HPF Urine Casts NONE /LPF Urine Mucus NEGATIVE /LPF Urine Culture Indicated NO Urine Opiates Screen NEGATIVE NEGATIVE Urine Oxycodone Screen NEGATIVE NEGATIVE Urine Methadone Screen NEGATIVE NEGATIVE Urine Propoxyphene Screen NEGATIVE NEGATIVE Urine Barbiturates Screen NEGATIVE NEGATIVE Ur Tricyclic Antidepressants Screen NEGATIVE NEGATIVE Urine Phencyclidine Screen NEGATIVE NEGATIVE Urine Amphetamines Screen NEGATIVE NEGATIVE Urine Methamphetamines Screen NEGATIVE NEGATIVE Urine Benzodiazepines Screen NEGATIVE NEGATIVE Urine Cocaine Screen NEGATIVE NEGATIVE Urine Cannabinoids Screen NEGATIVE NEGATIVE My Orders Orders - BRITTANY RODRIGUEZ DO Ed Iv/Invasive Line Start (07/29/22 22:00) Monitor-Rhythm Ecg Trace Only (07/29/22 22:00) Ct Abd/Pelvis Wo(Kidney Stone) (07/29/22 22:00) Abdomen/Kub 1[place] (07/29/22 22:00) Acetaminophen (07/29/22 22:00) Alcohol (07/29/22 22:00) Amylase (07/29/22 22:00) Cbc With Automated Diff (07/29/22 22:00) Comprehensive Metabolic Panel (07/29/22 22:00) Drug Screen Stat (Urine) (07/29/22 22:00) Hcg,Qualitative Serum (07/29/22 22:00) Lipase (07/29/22 22:00) Ua Culture If Indicated (07/29/22 22:00) Ed Iv/Invasive Line Start (07/29/22 22:00) Lactated Ringers (Lr 1000 Ml Iv Solution (07/29/22 22:00) Promethazine Injection (Phenergan Injec (07/29/22 22:00) Ketorolac Injection (Toradol Injection) (07/29/22 22:00) Diphenhydramine Injection (Benadryl Inje (07/29/22 22:00) Diphenhydramine Injection (Benadryl Inje (07/29/22 22:02) Promethazine Injection (Phenergan Injec (07/29/22 22:02) Ketorolac Injection (Toradol Injection) (07/29/22 22:02) Ed Iv/Invasive Line Start (07/29/22 22:28) Ns Iv 1000 Ml (Sodium Chloride 0.9%) (07/29/22 22:30) Covid 19 Inhouse Test (07/29/22 22:38) Influenza A And B By Pcr (07/29/22 22:38) Beta Hydroxybutyrate (07/29/22 22:58) Us Non Ob Pelvis Comp/Transvag (07/29/22 22:05) Accucheck Stat ONCE (07/30/22 01:26) Medications Given in ED Current Medications Medications Dose Ordered Sig/Linden Route Start Time Stop Time Status Last Admin Dose Admin Diphenhydramine HCl 50 mg ONCE ONCE IVP 07/29/22 22:00 07/29/22 22:02 DC 07/29/22 22:06 50 MG Lactated Ringer's 1,000 ml @ 0 mls/hr Q0M ONCE IV 07/29/22 22:00 07/29/22 22:02 DC 07/29/22 22:08 0 MLS/HR Vital Signs/I&O 07/29/22 21:56 Temp 37.2 Pulse 162 Resp 42 B/P (MAP) 157/90 (112) Pulse Ox 98 O2 Delivery Room Air Blood Pressure Mean: 112 Progress Progress Note : Progress Note GIVEN: -IV FLUIDS -PHENERGAN -BENADRYL -TORADOL SYMPTOMS COMPLETELY RESOLVED WITH THE ABOVE MEDICATIONS, PT RESTING QUIETLY 0054--CALLED XRAY DEPT, REGARDING ULTRASOUND REPORT. IT IS IN LINE TO BE READ, BUT HAS NOT BEEN READ YET. INCLUDED IN DIFFERENTIAL DX: OVARIAN CYST RUPTURE AND/OR TORSION, UTI, APPENDICITIS, KIDNEY STONE, GASTROENTERITIS, ALSO POSSIBILITY OF DKA DUE TO LONG HISTORY OF NON-COMPLIANCE NO EVIDENCE OF DKA BASED ON LAB REPEAT ACCUCHECK 309--PT HAS NOT TAKEN ANY INSULIN THIS AFTERNOON OR EVENING. REVIEWED TEST RESULTS, ANTICIPATED COURSE, SYMPTOMATIC TREATMENT, NEED FOR FOLLOW UP AND RETURN PRECAUTIONS REVIEWED PRIOR RECORDS, INCLUDING ER VISITS, ADMIT, H&P, DISCHARGE SUMMARY, TESTS/PROCEDURES Diagnostic Imaging Comments KUB--NO ACUTE PROCESS, PENDING RADIOLOGIST REVIEW CT ABDOMEN/PELVIS--PER [facility] VIA FAX AT [phone] -NORMAL APPENDIX -RIGHT ADNEXAL CYSTIC LESTION 3.8 X 5.8 -NON-OBSTRUCTING 2 MM RIGHT UPPER POLE RENAL CALCULUS. PELVIC ULTRASOUND--PER [facility] VIA FAX AT 0123 -HEMORRHAGIC RIGHT OVARIAN CYST 6.0 X 3.7 X 5.2. FOLLOW UP ULTRASOUND AFTER 1-2 MENSTRUAL CYCLES RECOMMENDED. -BOTH OVARIES DEMONSTRATE GOOD BLOOD FLOW. NO TORSION -NO UTERINE FIBROIDS. 8 MM ENDOMETRIAL COMPLEX. Reviewed: Reviewed by Me Departure Impression Primary Impression: Right flank pain Additional Impressions: RLQ abdominal pain CHRONIC RIGHT OVARIAN CYST Uncontrolled type 1 diabetes mellitus Hyperglycemia due to type 1 diabetes mellitus NON OBSTRUCTIVE RIGHT INTRA-RENAL CALCULI Disposition: HOME, SELF-CARE Condition: Improved Departure-Patient Inst. Decision time for Depature: 01:30 [place] [facility] [place] Instructions: Carb Counting for Adults With Diabetes, Flank Pain ED, High Blood Sugar, Adult ED, Ovarian Cyst ED Add. Discharge Instructions: FOLLOW UP WITH YOUR SURGEON AT [facility] SCHEDULED CONTINUE YOUR ROUTINE MEDICATIONS PRESCRIBED RETURN TO ER IF SYMPTOMS WORSEN All discharge instructions reviewed with patient and/or family. Voiced understanding. Scripts Ondansetron (Ondansetron Odt) 8 Mg Tab.rapdis 8 MG PO Q6H, #10 TAB Prov: BRITTANY RODRIGUEZ DO 07/30/22 Ketorolac Tromethamine (Ketorolac Tromethamine) 10 Mg Tablet 10 MG PO Q6H for Pain, #15 TAB Prov: JENNIFERBRITTANY K DO 07/30/22 BRITTANY RODRIGUEZ DO Jul 29, 2022 22:37
[2022-07-29 23:40] LABS: BILIRUBIN,URINE NEGATIVE (NEGATIVE); CLARITY,URINE SL CLOUDY; COLOR,URINE YELLOW; GLUCOSE, URINE (UA) 3+ (NEGATIVE); KETONES,URINE TRACE (NEGATIVE); LEUKOCYTE ESTERASE ,URINE TRACE (NEGATIVE); NITRITE,URINE NEGATIVE (NEGATIVE); PH,URINE 5.5 (5-9); PROTEIN,URINE NEGATIVE (NEGATIVE)
[2022-07-29 23:54] LABS: AMPHETAMINE SCREEN, URINE NEGATIVE (NEGATIVE); BACTERIA,URINE TRACE /HPF; BARBITURATE SCREEN URINE NEGATIVE (NEGATIVE); BENZODIAZEPINES SCREEN URINE NEGATIVE (NEGATIVE); CANNABINOID SCREEN, URINE NEGATIVE (NEGATIVE); COCAINE SCREEN URINE NEGATIVE (NEGATIVE); METHADONE STAT NEGATIVE (NEGATIVE); OPIATE SCREEN URINE NEGATIVE (NEGATIVE); OXYCODONE STAT NEGATIVE (NEGATIVE); PROPOXYPHENE STAT NEGATIVE (NEGATIVE); RBC,URINE 0-2 /HPF; TRICYCLIC ANTIDEPRESSANTS SCRE NEGATIVE (NEGATIVE); WBC,URINE 0-2 /HPF
[2022-07-30] MEDS ORDERED: ONDA8TAB13 PO (01:33)
[2022-07-30] MEDS ORDERED: KETO10TA PO (01:33)
[2022-07-30 01:39] VITALS: BP 114/69
--- NOTE | 2022-07-30 05:52 | Diagnostic Imaging Report ---
PROCEDURE: CT urinary tract, rule out kidney stone. TECHNIQUE: Multiple contiguous axial images were obtained through the abdomen and pelvis without the use of intravenous contrast. Auto Exposure Controls were utilized during the CT exam to meet ALARA standards for radiation dose reduction. INDICATION: Flank pain Lung bases are clear. Liver appears normal. Gallbladder appears normal. Pancreas is normal. Spleen is not enlarged. Left kidney is normal. There is a nonobstructing 2 mm calculus in the upper pole the right kidney. There is no evidence of appendicitis. Large and small bowel appear normal. Urinary bladder is normal. There is a 6 cm cyst in the right adnexa. Left adnexa unremarkable. Is no intraperitoneal free air or free fluid. IMPRESSION: Large right adnexal cyst. Right nephrolithiasis. No change compared to exam dated 04/13/2022. I agree with preliminary interpretation. Dictated by: Dictated on workstation # [id number]
--- NOTE | 2022-07-30 05:58 | Diagnostic Imaging Report ---
PROCEDURE: US Non-ob pelvis comp/trans. TECHNIQUE: Multiple realtime grayscale images were obtained of the pelvis in various projections endovaginally. Transabdominal imaging was also performed. INDICATION: Right lower quadrant pain FINDINGS: The uterus measures 7.8 x 4.4 cm. Endometrial stripe is 8 mm. There is a 6 cm cyst in the right adnexa. The right ovary is otherwise normal with normal blood flow. Left ovary is normal with normal blood flow. There is a trace amount of free fluid in the cul-de-sac. IMPRESSION: Large right ovarian cyst. Trace amount of free fluid. Agree with preliminary interpretation. Dictated by: Dictated on workstation # [id number]
--- NOTE | 2022-07-30 06:14 | Diagnostic Imaging Report ---
EXAMINATION: Abdomen 1 view HISTORY: abdomen pain COMPARISON: 07/29/2022 FINDINGS: There is a moderate amount of gas and stool throughout the colon. Nonobstructive bowel gas pattern. No radiopaque foreign body. The osseous structures are intact. IMPRESSION: Moderate stool burden without other acute abnormality in the abdomen. Dictated by: Dictated on workstation # [id number]
== END 2022-07-30 01:39 | disposition home or self-care (01) ==
LOC: EDUNIT# 21:53 → ER 21:54
DX: N83.201 Unspecified ovarian cyst, right side (principal); N20.0 Calculus of kidney; E10.65 Type 1 diabetes mellitus with hyperglycemia; I10 Essential (primary) hypertension; Z20.822 Contact with and (suspected) exposure to COVID-19; Z28.310 Unvaccinated for COVID-19
CPT/HCPCS: 36415; 74018; 74176; 76830; 76856; 80053; 80306; 80320; 80329; 81000; 82010; 82150; 82947; 83690; 84703; 85025; 87636; 93041

== ENCOUNTER 2022-10-25 22:20 | Emergency (ER) | payer MEDICAID ==
[~2022-10-25] VITALS: Ht 160 cm; Wt 56.2 kg
[~2022-10-25 22:20] MED LIST changes: -INSU100I29 SQ; +INSU100I30 SQ; +KETO10TA PO; +ONDA8TAB13 PO
[2022-10-25 22:58] LABS: BASOPHILS % (AUTO) 0 % (0-10); EOSINOPHILS # (AUTO) 0.1 10^3/uL (0.0-0.3); EOSINOPHILS % (AUTO) 1 % (0-10); HEMATOCRIT 36 % (35-52); HEMOGLOBIN 12.1 g/dL (11.5-16.0); LYMPHOCYTES # (AUTO) 0.6 10^3/uL (1.0-4.0); LYMPHOCYTES % (AUTO) 5 % (12-44); MEAN CORPUSCULAR HEMOGLOBIN 30 pg (25-34); MEAN CORPUSCULAR HGB CONC 33 g/dL (32-36); MEAN CORPUSCULAR VOLUME 90 fL (80-99); MEAN PLATELET VOLUME 9.3 fL (9.0-12.2); MONOCYTES # (AUTO) 0.6 10^3/uL (0.0-1.0); MONOCYTES % (AUTO) 6 % (0-12); NEUTROPHILS # (AUTO) 8.9 10^3/uL (1.8-7.8); NEUTROPHILS % (AUTO) 87 % (42-75); PLATELET COUNT 192 10^3/uL (130-400); WHITE BLOOD COUNT 10.2 10^3/uL (4.3-11.0)
[2022-10-25 22:59] LABS: BILIRUBIN,URINE NEGATIVE (NEGATIVE); CLARITY,URINE CLEAR; COLOR,URINE YELLOW; GLUCOSE, URINE (UA) NEGATIVE (NEGATIVE); KETONES,URINE NEGATIVE (NEGATIVE); LEUKOCYTE ESTERASE ,URINE TRACE (NEGATIVE); NITRITE,URINE NEGATIVE (NEGATIVE); PROTEIN,URINE NEGATIVE (NEGATIVE)
[2022-10-25 23:11] LABS: AMORPHOUS SEDIMENT,UR RARE AMOR URATES /LPF; BACTERIA,URINE TRACE /HPF; RBC,URINE 0-2 /HPF; SQUAMOUS EPITHELIAL CELL,UR 25-50 /HPF; WBC,URINE 0-2 /HPF
[2022-10-25 23:19] LABS: AMPHETAMINE SCREEN, URINE NEGATIVE (NEGATIVE); BARBITURATE SCREEN URINE NEGATIVE (NEGATIVE); BENZODIAZEPINES SCREEN URINE NEGATIVE (NEGATIVE); CANNABINOID SCREEN, URINE NEGATIVE (NEGATIVE); COCAINE SCREEN URINE NEGATIVE (NEGATIVE); METHADONE STAT NEGATIVE (NEGATIVE); OPIATE SCREEN URINE NEGATIVE (NEGATIVE); OXYCODONE STAT NEGATIVE (NEGATIVE); PROPOXYPHENE STAT NEGATIVE (NEGATIVE); TRICYCLIC ANTIDEPRESSANTS SCRE NEGATIVE (NEGATIVE)
[2022-10-25 23:20] LABS: BAND NEUTROPHILS 17 %; EOSINOPHILS % (MANUAL) 1 %; LYMPHOCYTES % (MANUAL) 5 %; MONOCYTES % (MANUAL) 1 %; NEUTROPHILS % (MANUAL) 76 %; PLATELET ESTIMATE NORMAL; RBC MORPH NORMAL
[2022-10-25 23:31] LABS: ALANINE AMINOTRANSFERASE 14 U/L (0-55); ALBUMIN 4.5 GM/DL (3.2-4.5); ALKALINE PHOSPHATASE 60 U/L (40-136); AMYLASE 48 U/L (25-125); BILIRUBIN,TOTAL 0.4 MG/DL (0.1-1.0); BUN/CREATININE RATIO 34; CALCIUM 9.4 MG/DL (8.5-10.1); CARBON DIOXIDE 22 MMOL/L (21-32); CHLORIDE 105 MMOL/L (98-107); GFR ESTIMATED 124; GLUCOSE 71 MG/DL (70-105); LIPASE 10 U/L (8-78); POTASSIUM 3.1 MMOL/L (3.6-5.0); SODIUM 137 MMOL/L (135-145); TOTAL PROTEIN 6.9 GM/DL (6.4-8.2)
--- NOTE | 2022-10-26 00:44 | ED General ---
General Chief Complaint: General Problems/Pain Stated Complaint: PAIN DURING URINATION, LEFT SIDE PAIN Nursing Triage Note: pt ambulatory to room. pt states she has had "off and on throbbing" in her vagina for approx 1 week. worsening today at approx 2030. states she became dizzy and the room was spinning from the pain. pt is A&Ox4, speech normal on arrival Source of Information: Patient Allergies and Home Medications Allergies Coded Allergies: sulfamethoxazole (Verified Allergy, Mild, Rash, 05/24/22) trimethoprim (Verified Allergy, Mild, Rash, 05/24/22) amoxicillin (Verified Adverse Reaction, Unknown, Vomiting, 05/24/22) Patient Home Medication List Blood Sugar Diagnostic (Test Strips) 1 Each Strip, 1 EACH MC QID Prescribed by: ELIZABETH CARVAJAL on 07/14/221839 Cefdinir (Cefdinir) 300 Mg Capsule, 300 MG PO BID Prescribed by: BRITTANY RODRIGUEZ on 06/19/22 234 Cephalexin (Cephalexin) 500 Mg Tablet, 500 MG PO QID Prescribed by: ELIZABETH CARVAJAL on 05/24/22 021 Doxycycline Hyclate (Doxycycline Hyclate) 100 Mg Tablet, 100 MG PO BID Prescribed by: ELIZABETH CARVAJAL on 05/24/22 021 Fluticasone Propionate (Fluticasone Propionate) 50 Mcg/Actuation [place].susp, (Reported) Entered as Reported by: ANGY HODGES on 05/24/22 0033 Insulin Aspart (Insulin Aspart Flexpen) 100 Unit/Ml (3 Ml) Insuln.pen, 1 UNITS SC SLIDING/SCALE Prescribed by: STAN GONZALEZ on 12/15/21 1538 Insulin Aspart (Insulin Aspart Flexpen) 100 Unit/Ml (3 Ml) Insuln.pen, 10 UNIT SQ TIDAC Prescribed by: ELIZABETH CARVAJAL on 07/14/22 184 Insulin Detemir (Levemir Flextouch) 100 Unit/Ml (3 Ml) Insuln.pen, 5 UNIT SQ BID Prescribed by: STAN GONZALEZ on 12/15/21 153 Ketorolac Tromethamine (Ketorolac Tromethamine) 10 Mg Tablet, 10 MG PO Q6H Prescribed by: BRITTANY RODRIGUEZ on 07/30/22 0133 Levothyroxine Sodium (Levothyroxine Sodium) 50 Mcg Tablet, 50 MCG PO DAILY, (Reported) Entered as Reported by: KARL CONNELLY on 12/15/21 1440 Nitrofurantoin Macrocrystal (Nitrofurantoin) 100 Mg Capsule, 100 MG PO BID Prescribed by: Raya Gómez on 06/08/22 1820 Ondansetron (Ondansetron Odt) 8 Mg Tab.rapdis, 8 MG PO Q6H Prescribed by: BRITTANY RODRIGUEZ on 07/30/22 0133 Past Vflvivy-Tajszy-Gnzlqy Hx Patient Social History Tobacco Use?: No Use of E-Cig and/or Vaping dev: No Substance use?: No Alcohol Use?: Yes Alcohol Frequency: Rarely Immunizations Up To Date Influenza Vaccine Up-to-Date: No; Not Current First/Initial COVID19 Vaccinat: NA Second COVID19 Vaccination Hesham: NA Third COVID19 Vaccination Date: NA Past Medical History Surgery/Hospitalization HX: IDDM, HYPOTHRYOIDISM, ALOPECIA, TUBAL Surgeries: Yes Tubal Ligation Respiratory: No Cardiac: No Neurological: Yes Headaches /Migraines Reproductive Disorders: Yes (RIGHT OVARIAN CYST) Female Reproductive Disorders: Ovarian Cyst WEIGH BOSS History: Tubal Ligation Genitourinary: No Gastrointestinal: No Musculoskeletal: No Endocrine: Yes (TYPE 1 DIABETES, DX AT 14 MONTHS OF AGE) Diabetes, Insulin dep, Hypothyroidsim Cancer: No Psychosocial: No Integumentary: Yes (ALOPECIA) Blood Disorders: No Family Medical History No Pertinent Family Hx Physical Exam Vital Signs Vital Signs - First Documented 10/25/22 22:33 Temp 37.1 Pulse 100 Resp 18 B/P (MAP) 116/80 (92) Pulse Ox 100 Capillary Refill : Height, Weight, BMI Height: '" Weight: lbs. oz. kg; 21.00 BMI Method: Progress/Results/Core Measures Suspected Sepsis SIRS Temperature: Pulse: 100 Respiratory Rate: 18 Laboratory Tests 10/25/22 22:50: White Blood Count 10.2 Blood Pressure 116 /80 Mean: 92 Laboratory Tests 10/25/22 22:50: Creatinine 0.70, Platelet Count 192, Total Bilirubin 0.4 Results/Orders Lab Results Laboratory Tests Test 10/25/22 22:50 10/25/22 22:51 Range/Units White Blood Count 10.2 4.3-11.0 10^3/uL Red Blood Count 4.05 3.80-5.11 10^6/uL Hemoglobin 12.1 11.5-16.0 g/dL Hematocrit 36 35-52 % Mean Corpuscular Volume 90 80-99 fL Mean Corpuscular Hemoglobin 30 25-34 pg Mean Corpuscular Hemoglobin Concent 33 32-36 g/dL Red Cell Distribution Width 12.1 10.0-14.5 % Platelet Count 192 130-400 10^3/uL Mean Platelet Volume 9.3 9.0-12.2 fL Immature Granulocyte % (Auto) 0 % Neutrophils (%) (Auto) 87 H 42-75 % Lymphocytes (%) (Auto) 5 L 12-44 % Monocytes (%) (Auto) 6 0-12 % Eosinophils (%) (Auto) 1 0-10 % Basophils (%) (Auto) 0 0-10 % Neutrophils # (Auto) 8.9 H 1.8-7.8 10^3/uL Lymphocytes # (Auto) 0.6 L 1.0-4.0 10^3/uL Monocytes # (Auto) 0.6 0.0-1.0 10^3/uL Eosinophils # (Auto) 0.1 0.0-0.3 10^3/uL Basophils # (Auto) 0.0 0.0-0.1 10^3/uL Immature Granulocyte # (Auto) 0.0 0.0-0.1 10^3/uL Neutrophils % (Manual) 76 % Lymphocytes % (Manual) 5 % Monocytes % (Manual) 1 % Eosinophils % (Manual) 1 % Band Neutrophils 17 % Platelet Estimate NORMAL Blood Morphology Comment NORMAL Urine Color YELLOW Urine Clarity CLEAR Urine pH 6.0 5-9 Urine Specific [place] 1.025 H 1.016-1.022 Urine Protein NEGATIVE NEGATIVE Urine Glucose (UA) NEGATIVE NEGATIVE Urine Ketones NEGATIVE NEGATIVE Urine Nitrite NEGATIVE NEGATIVE Urine Bilirubin NEGATIVE NEGATIVE Urine Urobilinogen 0.2 < = 1.0 MG/DL Urine Leukocyte Esterase TRACE H NEGATIVE Urine RBC (Auto) NEGATIVE NEGATIVE Urine RBC 0-2 /HPF Urine WBC 0-2 /HPF Urine Squamous Epithelial Cells 25-50 H /HPF Urine Crystals PRESENT H /LPF Urine Amorphous Sediment RARE JEANNIE URATES H /LPF Urine Bacteria TRACE /HPF Urine Casts NONE /LPF Urine Mucus LARGE H /LPF Urine Culture Indicated NO Sodium Level 137 135-145 MMOL/L Potassium Level 3.1 L 3.6-5.0 MMOL/L Chloride Level 105 98-107 MMOL/L Carbon Dioxide Level 22 21-32 MMOL/L Anion Gap 10 5-14 MMOL/L Blood Urea Nitrogen 24 H 7-18 MG/DL Creatinine 0.70 0.60-1.30 MG/DL Estimat Glomerular Filtration Rate 124 BUN/Creatinine Ratio 34 Glucose Level 71 70-105 MG/DL Calcium Level 9.4 8.5-10.1 MG/DL Corrected Calcium 9.0 8.5-10.1 MG/DL Total Bilirubin 0.4 0.1-1.0 MG/DL Aspartate Amino Transf (AST/SGOT) 16 5-34 U/L Alanine Aminotransferase (ALT/SGPT) 14 0-55 U/L Alkaline Phosphatase 60 40-136 U/L Total Protein 6.9 6.4-8.2 GM/DL Albumin 4.5 3.2-4.5 GM/DL Amylase Level 48 25-125 U/L Lipase 10 8-78 U/L Beta-Hydroxybutyrate (Chem panel) 0.15 0.00-0.27 MMOL/L Urine Opiates Screen NEGATIVE NEGATIVE Urine Oxycodone Screen NEGATIVE NEGATIVE Urine Methadone Screen NEGATIVE NEGATIVE Urine Propoxyphene Screen NEGATIVE NEGATIVE Urine Barbiturates Screen NEGATIVE NEGATIVE Ur Tricyclic Antidepressants Screen NEGATIVE NEGATIVE Urine Phencyclidine Screen NEGATIVE NEGATIVE Urine Amphetamines Screen NEGATIVE NEGATIVE Urine Methamphetamines Screen NEGATIVE NEGATIVE Urine Benzodiazepines Screen NEGATIVE NEGATIVE Urine Cocaine Screen NEGATIVE NEGATIVE Urine Cannabinoids Screen NEGATIVE NEGATIVE Serum Alcohol < 10 <10 MG/DL Glucometer 71 70-110 MG/DL My Orders Orders - BRITTANY RODRIGUEZ DO Urine Bedside (10/25/22 22:38) Ua Culture If Indicated (10/25/22 22:38) Accucheck Stat ONCE (10/25/22 22:46) Ed Iv/Invasive Line Start (10/25/22 22:46) Monitor-Rhythm Ecg Trace Only (10/25/22 22:46) Alcohol (10/25/22 22:46) Amylase (10/25/22 22:46) Cbc With Automated Diff (10/25/22 22:46) Comprehensive Metabolic Panel (10/25/22 22:46) Drug Screen Stat (Urine) (10/25/22 22:46) Lipase (10/25/22 22:46) Beta Hydroxybutyrate (10/25/22 22:46) Hemoglobin A1c (10/25/22 22:46) Manual Differential (10/25/22 22:50) Rocephin 1gm/50 Ml Iv (1xdose) (10/26/22 00:45) Azithromycin Tablet (Zithromax Tablet) (10/26/22 00:45) Neisseria Gonorrhea Swab (10/26/22 00:37) Chlam Dna Probe (10/26/22 00:37) Genital Culture (10/26/22 00:37) Wet Prep (10/26/22 00:37) Becca Prep (10/26/22 00:37) Vital Signs/I&O 10/25/22 22:33 Temp 37.1 Pulse 100 Resp 18 B/P (MAP) 116/80 (92) Pulse Ox 100 Capillary Refill : Blood Pressure Mean: 92 Point of Care Testing Finger Stick Blood Glucose: 71 Blood Glucose Action Taken: notified Departure Impression Primary Impression: PID (acute pelvic inflammatory disease) Additional Impression: Type 1 diabetes mellitus Disposition: 01 HOME, SELF-CARE Condition: Stable Departure-Patient Inst. Decision time for Depature: 00:40 Referrals: VINICIO MERRITT DO NO,LOCAL PHYSICIAN (PCP) Primary Care Physician [facility] Patient Instructions: Pelvic Inflammatory Disease ED, Diabetes and diet Add. Discharge Instructions: NO INTERCOURSE OF ANY KIND UNTIL YOU ARE RECHECKED AND CLEARED YOU MAY TAKE TYLENOL AND MOTRIN NEEDED FOR PAIN FOLLOW UP WITH [facility] THIS WEEK FOR FURTHER CARE All discharge instructions reviewed with patient and/or family. Voiced understanding. BRITTANY RODRIGUEZ DO Oct 26, 2022 00:44
[2022-10-26] MEDS ORDERED: AZITHROMYCIN 250 MG TAB (ZITHROMAX) PO ONE (00:45)
[2022-10-26] MEDS ORDERED: cefTRIAXone IV/IM 1,000 MG in NS (IVPB) 50 ML IV ONE (00:45)
[2022-10-26 01:31] VITALS: BP 110/77
== END 2022-10-26 01:32 | disposition home or self-care (01) ==
LOC: EDUNIT# 22:20 → ER 22:22
DX: N73.0 Acute parametritis and pelvic cellulitis (principal); E10.9 Type 1 diabetes mellitus without complications; Z28.310 Unvaccinated for COVID-19
CPT/HCPCS: 36415; 80053; 80306; 80320; 81000; 82010; 82150; 82947; 83036; 83690; 84703; 85007; 85027; 87070; 87205; 87210; 87491; 87591; 93041

== ENCOUNTER 2023-01-29 19:12 | Emergency (ER) | payer MEDICAID ==
[~2023-01-29] VITALS: Ht 160 cm; Wt 57.6 kg
--- NOTE | 2023-01-29 19:32 | ED GI ---
General Chief Complaint: Abdominal/GI Problems Stated Complaint: ABD PAIN Source of Information: Patient Exam Limitations: No Limitations History of Present Illness Date Seen by Provider: Jan 29, 2023 Time Seen by Provider: 19:20 Initial Comments Patient is a 27-year-old female who presents to the emergency room with a chief complaint of lower abdominal discomfort and "bloating". She states the symptoms have been coming and going for about a week. She denies nausea and vomiting. She denies diarrhea. No black or bloody stools. No burning with urination. She does have a little low back pain. No rashes. No fevers or chills. No abnormal vaginal discharge. She is due for her menstrual cycle in the next . She has had previous oophorectomy with cyst removal. She is a type I diabetic and admits to not checking her sugars at all. She treats herself symptomatically, when she feels "low" she eats and when she feels like she may be high she takes her insulin. She denies any recent sick contacts. She does incidentally state that it is one of her children's birthdays today and she was called into work later this evening when she thought she was supposed to work earlier today. Timing/Duration: 1 Week Severity/Quality: Cramping Location: Other (lower abdomen) Radiation: No Radiation Activities at Onset: None Modifying Factors: Improves With Eating ("eating alot") Associated Symptoms: Back Pain (low back pain) Allergies and Home Medications Allergies Coded Allergies: sulfamethoxazole (Verified Allergy, Mild, Rash, 05/24/22) trimethoprim (Verified Allergy, Mild, Rash, 05/24/22) amoxicillin (Verified Adverse Reaction, Unknown, Vomiting, 05/24/22) Patient Home Medication List Home Medication List Reviewed: Yes Blood Sugar Diagnostic (Test Strips) 1 Each Strip, 1 EACH MC QID Prescribed by: ELIZABETH CARVAJAL on 07/14/22 184 Cefdinir (Cefdinir) 300 Mg Capsule, 300 MG PO BID Prescribed by: BRITTANY RODRIGUEZ on 06/19/22 234 Cephalexin (Cephalexin) 500 Mg Tablet, 500 MG PO QID Prescribed by: ELIZABETH CARVAJAL on 05/24/22 021 Doxycycline Hyclate (Doxycycline Hyclate) 100 Mg Tablet, 100 MG PO BID Prescribed by: ELIZABETH CARVAJAL on 05/24/22 0211 Fluticasone Propionate (Fluticasone Propionate) 50 Mcg/Actuation [place].susp, (Reported) Entered as Reported by: ANGY HODGES on 05/24/22 0033 Insulin Aspart (Insulin Aspart Flexpen) 100 Unit/Ml (3 Ml) Insuln.pen, 1 UNITS SC SLIDING/SCALE Prescribed by: STAN GONZALEZ on 12/15/21 1538 Insulin Aspart (Insulin Aspart Flexpen) 100 Unit/Ml (3 Ml) Insuln.pen, 10 UNIT SQ TIDAC Prescribed by: ELIZABETH CARVAJAL on 07/14/22 1840 Insulin Detemir (Levemir Flextouch) 100 Unit/Ml (3 Ml) Insuln.pen, 5 UNIT SQ BID Prescribed by: STAN GONZALEZ on 12/15/21 1538 Ketorolac Tromethamine (Ketorolac Tromethamine) 10 Mg Tablet, 10 MG PO Q6H Prescribed by: BRITTANY RODRIGUEZ on 07/30/22 0133 Levothyroxine Sodium (Levothyroxine Sodium) 50 Mcg Tablet, 50 MCG PO DAILY, (Reported) Entered as Reported by: KARL CONNELLY on 12/15/21 1440 Nitrofurantoin Macrocrystal (Nitrofurantoin) 100 Mg Capsule, 100 MG PO BID Prescribed by: Raya Gómez on 06/08/22 1820 Ondansetron (Ondansetron Odt) 8 Mg Tab.rapdis, 8 MG PO Q6H Prescribed by: BRITTANY RODRIGUEZ on 07/30/22 0133 Review of Systems Review of Systems Constitutional: see HPI EENTM: No Symptoms Reported Respiratory: No Symptoms Reported Cardiovascular: No Symptoms Reported Gastrointestinal: Other (bloating and lower abdominal discomfort) Genitourinary: No Symptoms Reported Musculoskeletal: no symptoms reported Skin: no symptoms reported Psychiatric/Neurological: No Symptoms Reported Endocrine: Increased Hunger Past Gxmdapv-Ysrovw-Llmsav Hx Immunizations Up To Date First/Initial COVID19 Vaccinat: NA Second COVID19 Vaccination Hesham: NA Third COVID19 Vaccination Date: NA Past Medical History Surgery/Hospitalization HX: IDDM, HYPOTHRYOIDISM, ALOPECIA, TUBAL Surgeries: Yes Tubal Ligation Respiratory: No Cardiac: No Neurological: Yes Headaches /Migraines Reproductive Disorders: Yes (RIGHT OVARIAN CYST) Female Reproductive Disorders: Ovarian Cyst 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 oz. kg; 21.00 BMI Method: General Appearance: WD/WN, no apparent distress, thin HEENT: PERRL/EOMI Neck: supple Respiratory: lungs clear, normal breath sounds, no respiratory distress, no accessory muscle use Cardiovascular: regular rate, rhythm Gastrointestinal: normal bowel sounds, soft, tenderness (minimal lower abdominal discomfort with palpation) Extremities: normal range of motion, normal inspection Neurologic/Psychiatric: alert, normal mood/affect, oriented x 3 Skin: normal color, warm/dry Progress/Results/Core Measures Results/Orders Lab Results Laboratory Tests Test 01/29/23 19:20 01/29/23 19:33 01/29/23 19:39 Range/Units White Blood Count 6.3 4.3-11.0 10^3/uL Red Blood Count 3.77 L 3.80-5.11 10^6/uL Hemoglobin 11.3 L 11.5-16.0 g/dL Hematocrit 34 L 35-52 % Mean Corpuscular Volume 91 80-99 fL Mean Corpuscular Hemoglobin 30 25-34 pg Mean Corpuscular Hemoglobin Concent 33 32-36 g/dL Red Cell Distribution Width 12.5 10.0-14.5 % Platelet Count 230 130-400 10^3/uL Mean Platelet Volume 9.3 9.0-12.2 fL Immature Granulocyte % (Auto) 0 % Neutrophils (%) (Auto) 58 42-75 % Lymphocytes (%) (Auto) 33 12-44 % Monocytes (%) (Auto) 6 0-12 % Eosinophils (%) (Auto) 3 0-10 % Basophils (%) (Auto) 1 0-10 % Neutrophils # (Auto) 3.6 1.8-7.8 10^3/uL Lymphocytes # (Auto) 2.1 1.0-4.0 10^3/uL Monocytes # (Auto) 0.4 0.0-1.0 10^3/uL Eosinophils # (Auto) 0.2 0.0-0.3 10^3/uL Basophils # (Auto) 0.0 0.0-0.1 10^3/uL Immature Granulocyte # (Auto) 0.0 0.0-0.1 10^3/uL Sodium Level 144 135-145 MMOL/L Potassium Level 3.4 L 3.6-5.0 MMOL/L Chloride Level 110 H 98-107 MMOL/L Carbon Dioxide Level 23 21-32 MMOL/L Anion Gap 11 5-14 MMOL/L Blood Urea Nitrogen 14 7-18 MG/DL Creatinine 0.64 0.60-1.30 MG/DL Estimat Glomerular Filtration Rate 126 BUN/Creatinine Ratio 22 Glucose Level 69 L 70-105 MG/DL Calcium Level 8.5 8.5-10.1 MG/DL Corrected Calcium 8.7 8.5-10.1 MG/DL Total Bilirubin 0.2 0.1-1.0 MG/DL Aspartate Amino Transf (AST/SGOT) 24 5-34 U/L Alanine Aminotransferase (ALT/SGPT) 16 0-55 U/L Alkaline Phosphatase 60 40-136 U/L Total Protein 6.1 L 6.4-8.2 GM/DL Albumin 3.8 3.2-4.5 GM/DL Lipase 17 8-78 U/L Urine Color YELLOW Urine Clarity CLOUDY Urine pH 8.5 5-9 Urine Specific [place] 1.015 L 1.016-1.022 Urine Protein NEGATIVE NEGATIVE Urine Glucose (UA) TRACE H NEGATIVE Urine Ketones NEGATIVE NEGATIVE Urine Nitrite NEGATIVE NEGATIVE Urine Bilirubin NEGATIVE NEGATIVE Urine Urobilinogen 0.2 < = 1.0 MG/DL Urine Leukocyte Esterase NEGATIVE NEGATIVE Urine RBC (Auto) TRACE H NEGATIVE Urine RBC 2-5 H /HPF Urine WBC 0-2 /HPF Urine Squamous Epithelial Cells RARE /HPF Urine Crystals PRESENT H /LPF Urine Amorphous Sediment MOD JEANNIE PHOSPHATE H /LPF Urine Bacteria FEW H /HPF Urine Casts NONE /LPF Urine Mucus NEGATIVE /LPF Urine Culture Indicated YES Glucometer 66 L 70-110 MG/DL My Orders Orders - RAJAN,JOSE LUIS M MD Accucheck Stat ONCE (01/29/23 19:26) Ed Iv/Invasive Line Start (01/29/23 19:26) Cbc And Automated Diff (01/29/23 19:26) Comprehensive Metabolic Panel (01/29/23 19:26) Ua Culture If Indicated (01/29/23 19:26) Urine Bedside (01/29/23 19:26) Lipase (01/29/23 19:26) Ondansetron Injection (Ondansetron Inj (01/29/23 19:45) Urine Culture (01/29/23 19:33) Medications Given in ED Current Medications Medications Dose Ordered Sig/Linden Route Start Time Stop Time Status Last Admin Dose Admin Ondansetron HCl 4 mg ONCE ONCE IVP 01/29/23 19:45 01/29/23 19:46 DC 01/29/23 19:47 4 MG Vital Signs/I&O 01/29/23 01/29/23 19:15 21:01 Temp 36.4 Pulse 88 90 Resp 16 B/P (MAP) 113/78 (90) 125/80 Pulse Ox 100 98 01/30/23 00:00 Intake Total 1000 ml Balance 1000 ml Progress Progress Note : Time: 20:27 Progress Note Patient seen and evaluated by me. Evaluation today includes physical exam, CBC, Chem-12, lipase, urinalysis. Pertinent physical exam findings well-developed well-nourished petite female in no acute distress stable vital signs. Heart is regular, lungs are clear. Her abdominal exam is benign. No point tenderness in the suprapubic region, no right lower quadrant tenderness/tenderness at McBurney's point, negative De La Garza sign. She has normal to slightly quiet bowel sounds. No obvious skin wounds or rashes. Normal mentation. Bedside fingerstick 60s. Differential diagnosis includes atypical presentation of acute appendicitis, urinary tract infection, pelvic inflammatory disease, dyspepsia, acute cholecystitis Labs independently and reviewed and interpreted by me. Her CBC is shows a slightly low Hgb ct at 11.3, normal WBC, Her chemistry shows slightly low potassium at 3.4 and blood sugar 69. Normal Lipase. UA unremarkable for any overt signs of infection. Patient is monitored in the ED throughout her stay. No deterioration in her condition. No increase in pain. I have reassured the patient that there are no concerns at this time for an acute surgical problem in her abdomen. As she is chronically noncompliant with checking her blood sugars and taking her insulin I had a long discussion with her regarding risks of not taking care of herself. We discussed the potential for amputations and renal failure, poor wound healing. I encouraged her to follow-up with [facility] and the early childhood special educator so that she could may be get more on top of her blood sugars. It may be that her sugars are causing her abdominal bloating due to gastroparesis. Her last hemoglobin A1c was in October of this year and it was 8.1. I advised [id number] Tums or Gas-X for the bloating. Return precautions provided in both verbal and written format. All questions are soug ht and answered. Patient is stable for discharge. Departure Impression Primary Impression: Abdominal bloating Additional Impressions: Abdominal pain Qualified Codes: R10.30 - Lower abdominal pain, unspecified Medically noncompliant Disposition: HOME, SELF-CARE Condition: Stable Departure-Patient Inst. Decision time for Depature: 20:32 Referrals: [facility]/ASPEN STANLEY,LOCAL PHYSICIAN (PCP) Primary Care Physician Patient Instructions: Gas and bloating Add. Discharge Instructions: You really should check your blood sugars at least 3 times a day around meals. You should talk to your provider at [facility] about checking your hemoglobin A1c. You can take [id number] "Gas-X" or Tums for abdominal discomfort. You can also take 2 extra strength Tylenol every 6 hours as needed for discomfort. If you develop a fever or vomiting with increasing abdominal pain please return to the emergency department for reevaluation. Work/School Note: Work Release Form Date Seen in the Emergency Department: Jan 29, 2023 Return to Work: Jan 30, 2023 Copy Copies To 1: VINICIO MERRITT KATHRYN M MD Jan 29, 2023 19:32
[2023-01-29 19:38] LABS: ALBUMIN 3.8 GM/DL (3.2-4.5); BASOPHILS % (AUTO) 1 % (0-10); EOSINOPHILS # (AUTO) 0.2 10^3/uL (0.0-0.3); EOSINOPHILS % (AUTO) 3 % (0-10); HEMATOCRIT 34 % (35-52); HEMOGLOBIN 11.3 g/dL (11.5-16.0); LYMPHOCYTES # (AUTO) 2.1 10^3/uL (1.0-4.0); LYMPHOCYTES % (AUTO) 33 % (12-44); MEAN CORPUSCULAR HEMOGLOBIN 30 pg (25-34); MEAN CORPUSCULAR HGB CONC 33 g/dL (32-36); MEAN CORPUSCULAR VOLUME 91 fL (80-99); MEAN PLATELET VOLUME 9.3 fL (9.0-12.2); MONOCYTES # (AUTO) 0.4 10^3/uL (0.0-1.0); MONOCYTES % (AUTO) 6 % (0-12); NEUTROPHILS # (AUTO) 3.6 10^3/uL (1.8-7.8); NEUTROPHILS % (AUTO) 58 % (42-75); PLATELET COUNT 230 10^3/uL (130-400); POTASSIUM 3.4 MMOL/L (3.6-5.0); WHITE BLOOD COUNT 6.3 10^3/uL (4.3-11.0)
[2023-01-29 19:40] LABS: CALCIUM 8.5 MG/DL (8.5-10.1)
[2023-01-29 19:41] LABS: TOTAL PROTEIN 6.1 GM/DL (6.4-8.2)
[2023-01-29 19:43] LABS: BILIRUBIN,TOTAL 0.2 MG/DL (0.1-1.0)
[2023-01-29 19:44] LABS: CREATININE SERUM 0.64 MG/DL (0.60-1.30)
[2023-01-29] MEDS ORDERED: ONDANSETRON INJECTION 4 MG/2 ML (SDV) IVP ONE (19:45)
[2023-01-29 20:14] LABS: AMORPHOUS SEDIMENT,UR MOD AMOR PHOSPHATE /LPF; BACTERIA,URINE FEW /HPF; BILIRUBIN,URINE NEGATIVE (NEGATIVE); CLARITY,URINE CLOUDY; COLOR,URINE YELLOW; GLUCOSE, URINE (UA) TRACE (NEGATIVE); KETONES,URINE NEGATIVE (NEGATIVE); LEUKOCYTE ESTERASE ,URINE NEGATIVE (NEGATIVE); NITRITE,URINE NEGATIVE (NEGATIVE); PH,URINE 8.5 (5-9); PROTEIN,URINE NEGATIVE (NEGATIVE); SQUAMOUS EPITHELIAL CELL,UR RARE /HPF; WBC,URINE 0-2 /HPF
[2023-01-29 21:01] VITALS: BP 125/80
== END 2023-01-29 21:01 | disposition home or self-care (01) ==
LOC: EDUNIT# 19:12 → ER 19:14
DX: R14.0 Abdominal distension (gaseous) (principal); R10.30 Lower abdominal pain, unspecified; Z91.199 Patient's noncompliance with other medical treatment and regimen due to unspecified reason; E10.9 Type 1 diabetes mellitus without complications; Z28.310 Unvaccinated for COVID-19
CPT/HCPCS: 36415; 80053; 81000; 82947; 83690; 84703; 85025; 87088